=== PATIENT | female | born 1975 | race Caucasian/White ===

== ENCOUNTER → 2016-04-26 | Outpatient (CLI) | payer BC ==
--- NOTE | 2016-04-26 16:04 | DX ---
Chest, Two Views April 26, 2016 at 1156 hours History: C50.414, R91.1, postop right VATS. Comparison: March 2016. Findings: Cardiac silhouette is within normal range. Surgical clips in the right hemithorax. Pleur oparenchymal opacity in the right lower lobe appears unchanged. The left lung is clear. No pneumoth orax. Impressions 1. Postsurgical changes, with residual small right pleural effusion and right lower lobe opacity dem onstrating no significant interval change given the differences in technique. 2. No pneumothorax.
== END ==
LOC: FIMAGING 11:43
PROVIDERS: ATTEND Surgery
DX: J90 Pleural effusion, not elsewhere classified (principal); C50.419 Malignant neoplasm of upper-outer quadrant of unspecified female breast

== ENCOUNTER → 2016-06-28 | Outpatient (CLI) | payer BC ==
[~2016-06-28] MED LIST: IOPAMIDOL (ISOVUE-300) 100 ML BTL IV ONE
== END ==
LOC: FIMAGING 12:40
PROVIDERS: ATTEND Internal Medicine Hematology & Oncology
DX: Z12.9 Encounter for screening for malignant neoplasm, site unspecified (principal); C79.51 Secondary malignant neoplasm of bone; K76.0 Fatty (change of) liver, not elsewhere classified; R93.5 Abnormal findings on diagnostic imaging of other abdominal regions, including retroperitoneum; Z85.3 Personal history of malignant neoplasm of breast; Z98.890 Other specified postprocedural states
CPT/HCPCS: Q9967

== ENCOUNTER 2016-07-03 09:15 | Day surgery (SDC) | payer BC ==
[2016-07-03] MEDS ORDERED: PROPOFOL/EMULSION 500 MG/50 ML BOTTLE IV ONE ×2 (10:33→11:06)
[2016-07-03] MEDS ORDERED: LIDOCAINE 2% 100 MG/5 ML SYR ONE (10:33)
--- NOTE | 2016-07-03 12:44 | GPN ---
[f rep st] PROCEDURE NOTE DATE OF PROCEDURE: 07/03/2016 PROCEDURE: Esophagogastroduodenoscopy with biopsy, endoscopic ultrasound. INDICATION: Ms. Linn is a 40-year-old female with history of metastatic breast cancer, who presents for evaluation of abnormal imaging. On a recent CT scan she was noted to have thickening in the antrum and body of the stomach. CONSENT: Risks, benefits, and alternatives of the procedure discussed in detail with the patient. Risk of infection, bleeding, perforation, sedation were discussed. All questions answered. Informed consent was obtained. MEDICATIONS: Propofol. Please see anesthesiology for details. ESTIMATED BLOOD LOSS: Insignificant. ESOPHAGOGASTRODUODENOSCOPY EXAMINATION: The Olympus upper endoscope was introduced into the esophagus. The proximal and mid esophagus were normal in appearance. The patient was noted to have an irregular Z line and biopsies were taken. The stomach was entered and closely examined, including retroflexed views of angularis, cardia, and fundus. A moderate hiatal hernia was noted. The mucosa in the antrum and body was erythematous and multiple biopsies were taken throughout the stomach. The duodenal bulb and second portion of duodenum normal in appearance. ENDOSCOPIC ULTRASOUND: The Olympus linear as well as radial echoendoscope was inserted into the mouth and advanced to second portion of the duodenum. The pancreas was carefully examined from the uncinate process to the tail, where the spleen was seen. Multiple dilated side branches were noted in the body of the pancreas. Hyperechoic foci were noted throughout the pancreas. The pancreatic duct wall was not hyperechoic. No mass lesion was seen. No suspicious periportal, peripancreatic, or perigastric nodes were appreciated. The stomach wall layers were examined and were mildly thickened in the superficial wall layers which may represent gastritis. A normal 5 layer wall pattern was noted. No obvious mass lesion or area to FNA was visualized. The common bile duct was without stone, stricture or stenosis. IMPRESSION: 1. Abnormal imaging- with thickening of the antrum and body of the stomach. No obvious mass lesion seen on EUS. Suspect changes secondary to gastritis versus underdistention of the stomach during imaging. Will await biopsy results. 2. Gastritis- s/p biopsy. 3. Esophagitis- s/p biopsy. RECOMMENDATIONS: 1. Await biopsy results. 2. Continue previous medications. 3. Follow up with Oncology. /[id number]/MODL MTDD
== END 2016-07-03 12:30 | disposition home or self-care (01) ==
LOC: FSGY 09:15
PROVIDERS: ATTEND Internal Medicine Gastroenterology
DX: K29.70 Gastritis, unspecified, without bleeding (principal); Z85.3 Personal history of malignant neoplasm of breast
CPT/HCPCS: J2001; J2704

== ENCOUNTER → 2016-10-05 | Outpatient (CLI) | payer BC ==
[~2016-10-05] MED LIST changes: -IOPAMIDOL (ISOVUE-300) 100 ML BTL IV ONE; +IOPAMIDOL (ISOVUE-300) 100 ML BTL ONE
== END ==
LOC: FIMAGING 09:37
PROVIDERS: ATTEND Internal Medicine Hematology & Oncology
DX: Z12.9 Encounter for screening for malignant neoplasm, site unspecified (principal); J98.4 Other disorders of lung; C50.411 Malignant neoplasm of upper-outer quadrant of right female breast; C50.811 Malignant neoplasm of overlapping sites of right female breast; C50.919 Malignant neoplasm of unspecified site of unspecified female breast
CPT/HCPCS: 71260; 74177; 78306; A9503; Q9967

== ENCOUNTER 2016-10-23 14:36 | Inpatient (IN) | payer OTHER, BC ==
[2016-10-23] MEDS ORDERED: ONDANSETRON 4 MG/2 ML VIAL IVP PRN (17:31)
[2016-10-23] MEDS ORDERED: ONDANSETRON DISINTEGRATING 4 MG TAB PO PRN (17:31)
[2016-10-23] MEDS ORDERED: ACETAMINOPHEN 325 MG TAB PO PRN (17:31)
[2016-10-23] MEDS ORDERED: METOCLOPRAMIDE 10 MG/2 ML VIAL IVP PRN (17:37)
[2016-10-23] MEDS ORDERED: PROMETHAZINE HCL 25 MG/ML INJ IVP PRN (17:37)
[2016-10-23] MEDS ORDERED: TEMAZEPAM 15 MG CAP PO PRN (17:37)
[2016-10-23] MEDS ORDERED: NS 1,000 ML IV SCH (17:45)
--- NOTE | 2016-10-23 18:14 | GHP ---
[f rep st] HISTORY AND PHYSICAL DATE OF ADMISSION: 10/23/2016 HISTORY OF PRESENT ILLNESS: The patient is a 40-year-old female with a history of metastatic breast cancer currently stable on Xeloda therapy, who presents to the hospital with several weeks' worth o f abdominal pain, bloating, and vomiting. These episodes have been going on for at least 6-8 weeks, where she will have abdominal pain that is sharp. She will have some bloating and some vomiting. There is no melena. There is no hematemesi s. There is no coffee-grounds emesis. She had upper endoscopy performed in June of this year by Manohar Bradshaw that showed gastritis. There was an EUS done at that time concerned with thickening in the antrum of the body of the stomach, which was not seen on EUS. She had a biopsy of gastritis an d esophagitis. The patient had previously taken NSAIDs but is no longer taking them. Notably, she had staging imaging done in September of this year, at the end of September, so really about 3 we eks ago, and it showed 1 small lesion in her liver that is stable and small lesions in her pleura th at are stable. Abdominal CT done on October 05, notes a contracted gallbladder and they do not comment on stones. Her father had a cholecystectomy but also has obesity. There is no strong family histo ry. She no longer has menses. She is not drinking significant alcohol. She is not taking NSAIDs. She does not smoke cigarettes. She has does not have a family history of fibroid disease. She had a low-grade temperature at an ER visit in [place] on Sunday. She has been eating poorly. It is pos sible that there is a relationship between these abdominal symptoms and her postprandial nature. REVIEW OF SYSTEMS: A complete 10-point review of systems conducted and negative except as noted in the HPI. PAST MEDICAL HISTORY: 1. 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 2. Status post right-sided pleurodesis with Dr. Rucker. 3. She has had bilateral mastectomies with subsequent implants. She has had multiple hip surgeries including incision and drainage of a hip infection, bilateral oophorectomy, lumbar fusion. ALLERGIES: Hydromorphone. HOME MEDICATIONS: Xeloda, vitamin D3, b.i.d. Ativan, p.r.n. Percocet, Protonix, sucralfate, temazep am. 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 No tobacco, rare alcohol. FAMILY HISTORY: Negative for breast cancer. PHYSICAL EXAMINATION: VITAL SIGNS: Temp 36.9, blood pressure 124/82, pulse 60, breathing 16 times a minute, 94% on room air. GENERAL: In no acute distress. HEENT: Sclerae anicteric. Oropharynx clear. Mucous membranes moist. NECK: Supple without lymphadenopathy or JVD. LUNGS: Clear to aus cultation bilaterally. There are decreased breath sounds on the right, which is apparently consiste nt with her previous exams since her right pleurodesis. HEART: S1, S2. Not tachycardic. ABDOMEN: Soft. There is some right upper quadrant tenderness but I would not exactly call it a Durham sign . LOWER EXTREMITIES: Without edema. Calves nontender. SKIN: Without rash. NEUROLOGIC: Exam is nonfocal. LABORATORY AND X-RAY DATA: She had labs 10 days ago. She had a white count of 4.8, hematocrit of 4 1, and platelets of 293. Repeat chemistry shows a sodium 137, potassium 5, chloride 107, bicarb 19, BUN 11, creatinine 0.7. LFTs at that time were normal. The imaging as I have discussed. She also had a chest x-ray at that time that I have reviewed and interpreted myself showing chronic pleural thickening, pleurodesis. I have discussed the case with Dr. Brii Mckenzie. ASSESSMENT/PLAN: This is a 40-year-old female with metastatic breast cancer, who presents with naus ea and vomiting. 1. Nausea and vomiting. Certainly her story is possibly suggestive of chronic cholecystitis. Rece nt liver tests were somewhat normal and she tells me she had normal LFTs including alkaline phosphat ase and bilirubin in an ER visit in [place] just a few days ago. Irrespective, will check LFTs and a right upper quadrant ultrasound. We will also check a lipase at that time. She has been seen by Manohar Bradshaw, and if this is all unrevealing, then endoscopy with EUS probably would be indicated. There is no clear correlation with her cancer given her recent negative imaging. 2. She stopped her Xeloda 4 weeks ago, and so presumably, the potential for gastrointestinal upset, which does exist with that medicine would have washed out by now. We can discuss this at [facility] with the oncologist. 3. Breast cancer, stable per imaging. Currently off Xeloda. 4. History of pleurodesis. She is on room air and her exam is consistent with how it has been so w e will follow. 5. Prophylaxis. The patient is [id number] risk. I would recommend pharmacologic venous thro mbosis prophylaxis but I will hold it today until her plan for procedures is more clear. 6. Disposition. Inpatient status. /[id number]/MODL
[2016-10-23] MEDS ORDERED: FLUTICASONE NASAL 120 SPRAYS/16 GM MDI EACHNARE PRN (18:41)
[2016-10-23] MEDS ORDERED: SUCRALFATE 1 GM/10 ML UDCUP PO PRN (18:56)
[2016-10-23] MEDS ORDERED: PROMETHAZINE HCL 25 MG TAB PO PRN (18:56)
[2016-10-23] MEDS: OXYCODONE/APAP 5/325 TAB PO PRN ×2 (19:08→23:11)
[2016-10-23 21:59] LABS: % IMMATURE GRANULYOCYTES 0.2 % (0.0-1.1); ABSOLUTE IMMATURE GRANULOCYTES 0.01 10^3/uL (0.00-0.10); ADD DIFF? NO; ADD MORPH? NO; ADD SCAN? NO; ATYPICAL LYMPHOCYTE FLAG 0 (0-99); FRAGMENT RBC FLAG 0 (0-99); HEMATOCRIT 36.2 % (38.0-47.0); HEMOGLOBIN 12.8 g/dL (12.6-16.3); LEFT SHIFT FLG 0 (0-99); LIPEMIA HEMOLYSIS FLAG 90 (0-99); MEAN CELL HEMOGLOBIN 32.7 pg (27.9-34.1); MEAN CELL HEMOGLOBIN CONCENTR. 35.4 g/dL (32.4-36.7); MEAN CELL VOLUME 92.3 fL (81.5-99.8); MEAN PLATELET VOLUME 8.7 fL (8.7-11.7); PLATELET CLUMPS FLAG 0 (0-99); PLATELET COUNT 249 10^3/uL (150-400); RED BLOOD CELL COUNT 3.92 10^6/uL (4.18-5.33)
[2016-10-23 22:12] LABS: ALANINE AMINOTRANSFERASE 22 IU/L (9-52); ALBUMIN 4.2 g/dL (3.5-5.0); ALKALINE PHOSPHATASE 35 IU/L (38-126); ANION GAP 13 mEq/L (8-16); ASPARTATE AMINOTRANSFERASE 18 IU/L (14-46); BILIRUBIN,TOTAL 0.5 mg/dL (0.1-1.4); CALCIUM 9.6 mg/dL (8.5-10.4); CARBON DIOXIDE 20 mEq/l (22-31); CHLORIDE 105 mEq/L (97-110); CREATININE 0.6 mg/dL (0.6-1.0); GLOMERULAR FILTRATION RATE > 60; GLUCOSE 99 mg/dL (70-100); POTASSIUM 4.1 mEq/L (3.5-5.2); SODIUM 138 mEq/L (134-144)
[2016-10-23] MEDS: LORazepam 1 MG TAB PO PRN (22:23)
[2016-10-23] MEDS: TEMAZEPAM 15 MG CAP PO PRN (22:23)
[2016-10-24] MEDS ORDERED: POLYETHYLENE GLYCOL 3350 17 GM PKT PO PRN (02:52)
[2016-10-24 05:01] LABS: % IMMATURE GRANULYOCYTES 0.2 % (0.0-1.1); ABSOLUTE IMMATURE GRANULOCYTES 0.01 10^3/uL (0.00-0.10); ADD DIFF? NO; ADD MORPH? NO; ADD SCAN? NO; ATYPICAL LYMPHOCYTE FLAG 10 (0-99); FRAGMENT RBC FLAG 0 (0-99); HEMATOCRIT 35.7 % (38.0-47.0); HEMOGLOBIN 12.5 g/dL (12.6-16.3); LEFT SHIFT FLG 0 (0-99); LIPEMIA HEMOLYSIS FLAG 90 (0-99); MEAN CELL HEMOGLOBIN 32.6 pg (27.9-34.1); MEAN CELL VOLUME 93.2 fL (81.5-99.8); MEAN PLATELET VOLUME 8.7 fL (8.7-11.7); PLATELET CLUMPS FLAG 0 (0-99); PLATELET COUNT 240 10^3/uL (150-400); RED BLOOD CELL COUNT 3.83 10^6/uL (4.18-5.33)
[2016-10-24 05:13] LABS: ALANINE AMINOTRANSFERASE 25 IU/L (9-52); ALBUMIN 3.7 g/dL (3.5-5.0); ALKALINE PHOSPHATASE 37 IU/L (38-126); ANION GAP 10 mEq/L (8-16); ASPARTATE AMINOTRANSFERASE 16 IU/L (14-46); BILIRUBIN,TOTAL 0.5 mg/dL (0.1-1.4); CALCIUM 9.4 mg/dL (8.5-10.4); CARBON DIOXIDE 20 mEq/l (22-31); CHLORIDE 111 mEq/L (97-110); CREATININE 0.6 mg/dL (0.6-1.0); GLOMERULAR FILTRATION RATE > 60; GLUCOSE 86 mg/dL (70-100); POTASSIUM 4.1 mEq/L (3.5-5.2); SODIUM 141 mEq/L (134-144); TOTAL PROTEIN 6.5 g/dL (6.3-8.2)
[2016-10-24] MEDS ORDERED: Herbals/Supplements -Info Only PO SCH (09:00)
[2016-10-24] MEDS: CETIRIZINE 10 MG TAB PO SCH (13:34)
[2016-10-24] MEDS: PANTOPRAZOLE SODIUM 40 MG TAB PO SCH (13:34)
[2016-10-24] MEDS ORDERED: MIDAZOLAM 2 MG/2 ML VIAL ONE (16:07)
[2016-10-24] MEDS ORDERED: PROPOFOL 200 MG/20 ML VIAL ONE ×3 (16:07→16:31)
[2016-10-24] MEDS ORDERED: INDOMETHACIN 50 MG SUPP PR PRN (16:22)
--- NOTE | 2016-10-24 16:23 | POSTOPPROG ---
Post Op Note Date of Operation: 10/24/16 Surgeon: Hai Bradshaw Anesthesia: IV Sedation Pre-op Diagnosis: abdominal pain, abnormla imaging Post-op Diagnosis: HH, gastrititis Indication: abdominal pain, abnl imaging (CT scan showed thickening in distal stomach) Procedure: EGD with bx, EUS Findings: HH, gastriris. nl CBD. Inf/Abcess present in the surg proc area at time of surgery?: No EBL: Minimal
[2016-10-24] MEDS ORDERED: NS 500 ML IV SCH (16:30)
[2016-10-24] MEDS ORDERED: ONDANSETRON 4 MG/2 ML VIAL ONE (16:42)
[2016-10-24] MEDS ORDERED: NALOXONE HCL 0.4 MG/ML INJ IVP PRN (16:44)
[2016-10-24] MEDS ORDERED: LR 500 ML IV PRN (16:44)
--- NOTE | 2016-10-24 17:02 | HOSPPROG ---
Hospitalist Progress Note Assessment/Plan: DIAGNOSES: -Acute on chronic abdominal pain -history of metastatic breast cancer on chronic the Xeloda therapy -Status post pleurodesis for right pleural effusion I reviewed in detail with Dr Bradshaw today. She does not have any definitive findings so far that explain her pain. Considerations include functional bowel syndrome, bacterial overgrowth. A HIDA scan would be potentially useful but US not showing signs of gal bladder disease. PLANS: trial of rifaximin trial of antispasmodic HIDA SUBJECTIVE: The patient still has some pain this morning which is typical for her. She was not blood this morning. She was not particularly hungry but not nauseous. No fevers or fever symptoms. OBJECTIVE Vitals reviewed: Stable without fever Exam: alert oriented skin warm dry color ok resps not labored lungs clear BSs heart regular abd soft nondistended with some mild right upper quadrant tenderness present, no guarding or rebound, bowel sounds present limbs warm, no edema iv site ok laboratory data: Unremarkable CBC and chemistry panels; Her lipase was normal last night Ultrasound of abdomen, my review of the images: There is a small bit of ascites fluid adjacent to the liver which has been seen on previous imaging studies. The liver is otherwise unremarkable. She does not have visible gallstones and the gallbladder wall is not thickened at this time. The patient underwent today EGD with endoscopic ultrasound and advancement of a colonoscope into the jejunum. I reviewed this with Dr. Bradshaw. There were essentially no abnormal findings of concern. The gastritis and esophagitis seen on her previous EGD are not present at this time. Her bile duct was not dilated nor were there any stones or strictures seen anywhere. No masses were noted. There was no mucosal abnormality in the small bowel as it was endoscoped. Objective: Vital Signs Temp Pulse Resp BP Pulse Ox 36.8 C 59 L 16 99/72 L 98 10/24/16 16:38 10/24/16 15:21 10/24/16 16:50 10/24/16 16:50 10/24/16 16:50 Laboratory Results 10/24/16 04:45 10/24/16 04:45 10/23/16 10/24/16 10/25/16 06:59 06:59 06:59 Intake Total 1800 Balance 1800 ICD10 Worksheet Patient Problems: Problems Problem Status Onset Abdominal pain Acute Vomiting Acute
[2016-10-24] MEDS ORDERED: fentaNYL 100 MCG/2 ML INJ ONE (17:05)
[2016-10-24] MEDS: fentaNYL 100 MCG/2 ML INJ IVP PRN ×2 (17:06→17:39)
[2016-10-24] MEDS ORDERED: PROMETHAZINE HCL 25 MG/ML INJ ONE (17:33)
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
[2016-10-24] MEDS: RIFAXIMIN 550 MG TAB PO SCH (22:23)
[2016-10-24] MEDS: TEMAZEPAM 15 MG CAP PO PRN (22:25)
[2016-10-24] MEDS: OXYCODONE/APAP 5/325 TAB PO PRN (22:25)
[2016-10-25] MEDS: LORazepam 1 MG TAB PO PRN (01:49)
--- NOTE | 2016-10-25 08:10 | SOAPPROG ---
SOTRIP Progress Note Assessment/Plan: Assessment: Plan: 10/25/16 08:07 A/P 1. Abdominal pain- RUQ and epigastric. + bloating. Extensive workup with recent imaging studies including CT, US, EUS, and EGD. Etiology? Biliary versus functional versus small bowel overgrowth versus other? Symptoms atypical for gallbladder. HIDA scan is pending today. Started on trial of Xifaxan and would recommend to also start hyoscyamine prn for pain. Subjective: cc: Follow up abdominal pain. Minimal complaints of RUQ abdominal pain. No bloating. Objective: Vital Signs Temp Pulse Resp BP Pulse Ox 36.6 C 56 L 16 87/56 L 96 10/25/16 04:00 10/25/16 04:00 10/25/16 04:00 10/25/16 04:00 10/25/16 04:00 Laboratory Results 10/24/16 04:45 10/24/16 04:45 10/24/16 10/25/16 10/26/16 05:59 05:59 05:59 Intake Total 1800 3291 Output Total 0 Balance 1800 3291 Physical Exam - Physical Exam General Appearance: alert, no apparent distress EENT: No scleral icterus (R), No scleral icterus (L) Respiratory: chest non-tender, lungs clear, No crackles, No rales, No rhonchi Cardiac/Chest: regular rate, rhythm, No bradycardia, No tachycardia, No diastolic murmur, No systolic murmur Abdomen: soft, No non-tender (miminal RUQ), No distended, No guarding, No rebound Skin: normal color Neuro/Psych: alert, normal mood/affect, oriented x 3, No abnormal barrel finisher II-XII ICD10 Worksheet Patient Problems: Problems Problem Status Onset Abdominal pain Acute Vomiting Acute
[2016-10-25] MEDS ORDERED: HYOSCYAMINE SULFATE 0.125 MG TAB PO PRN (08:12)
[2016-10-25 08:22] VITALS: TEMP 98.1; O2SAT 94
--- NOTE | 2016-10-25 09:15 | GPN ---
[f rep st] PROCEDURE NOTE DATE OF PROCEDURE: 10/24/2016 PROCEDURE: Enteroscopy with biopsy, endoscopic ultrasound. INDICATION: The patient is a 40-year-old female who presents for evaluation of midepigastric and right upper quadrant abdominal pain. She also had a CT scan which did reveal thickening in the gastric antrum. She presents for further evaluation. CONSENT: Risks, benefits, and alternatives of the procedure were discussed in great detail with the patient. Risks of infection, bleeding, perforation, and sedation were discussed. All questions answered and informed consent was obtained. MEDICATIONS: Propofol. Please see anesthesia record for details. ESTIMATED BLOOD LOSS: Insignificant. ENTEROSCOPY: The Olympus colonoscope was introduced in the mouth and advanced to the proximal jejunum. The scope was advanced approximately 60 cm past the pylorus. The proximal, mid, and distal esophagus was normal in appearance. The stomach was entered and closely examined including retroflexed views of the angularis, cardia, and fundus. The mucosa was mildly erythematous in a patchy distribution in the antrum and the body. Biopsies were taken. The duodenum and proximal jejunum were normal in appearance. Biopsies were taken to rule out celiac sprue. ENDOSCOPIC ULTRASOUND EXAMINATION: The Olympus linear echoendoscope was introduced into the mouth and advanced to the second portion of the duodenum. The pancreas was carefully examined from the uncinate process to the tail, where the spleen was seen. The pancreatic parenchymal wall was slightly hypoechoic. Multiple dilated side branches were noted. The pancreatic duct wall did have hyperechoic moreira. Hyperechoic foci were noted throughout the pancreas. No masses or cystic lesions were seen. No lobulations were seen. The common bile duct was seen and measured approximately 3 mm. No stone, stricture, or stenosis was noted. The gallbladder was seen and was normal without gallbladder wall thickening or cholelithiasis. No suspicious periportal, , peripancreatic, or perigastric nodes appreciated. IMPRESSION: 1. No obvious cause of her symptoms seen. 2. Gastritis, status post biopsy. 3. Biopsy to rule out celiac sprue. RECOMMENDATIONS: 1. Follow up on biopsy results. 2. Will start a trial of Xifaxan 550 mg. 3. Would recommend a low-bloat diet. No salads or raw vegetables. Would also avoid dairy products. 4. Consider trial of antispasmodic. /[id number]/MODL MTDD
[2016-10-25 11:32] VITALS: BP 115/81; PULSE 71; RESP 18
[2016-10-25] MEDS: PANTOPRAZOLE SODIUM 40 MG TAB PO SCH (14:33)
[2016-10-25] MEDS: RIFAXIMIN 550 MG TAB PO SCH (14:33)
[2016-10-25] MEDS: CETIRIZINE 10 MG TAB PO SCH (14:33)
== END 2016-10-25 14:35 | disposition home or self-care (01) | DRG 392 ==
LOC: F1N 16:45
PROVIDERS: ADMIT Internal Medicine; ATTEND Internal Medicine
PROC: 0DB88ZX Excision of Small Intestine, Via Natural or Artificial Opening Endoscopic, Diagnostic (ICD-10-PCS; principal; 2016-10-24 16:00)
PROC: 0DB68ZX Excision of Stomach, Via Natural or Artificial Opening Endoscopic, Diagnostic (ICD-10-PCS; principal; 2016-10-24 16:00)
DX: K29.50 Unspecified chronic gastritis without bleeding (principal); Z85.3 Personal history of malignant neoplasm of breast; C78.7 Secondary malignant neoplasm of liver and intrahepatic bile duct
CPT/HCPCS: A9537; J2250; J2405; J2550; J2704; J3010

== ENCOUNTER 2016-11-10 10:05 | Inpatient (IN) | payer OTHER, BC ==
[2016-11-10] MEDS ORDERED: NS 1,000 ML IV ONE (11:14)
[2016-11-10] MEDS ORDERED: HEPARIN 1000 UNIT/1 ML MDV ONE (11:20)
[2016-11-10] MEDS ORDERED: ceFAZolin 1 GM/5 ML SYR ONE (11:20)
[2016-11-10] MEDS ORDERED: BUPIVACAINE 0.5% 30 ML SDV ONE (11:20)
[2016-11-10] MEDS ORDERED: SCOPOLAMINE HYDROBROMIDE 1.5 MG PATCH TD ONE (11:26)
[2016-11-10] MEDS ORDERED: MIDAZOLAM 2 MG/2 ML VIAL IVP ONE (11:27)
--- NOTE | 2016-11-10 11:28 | PDANEPAE ---
ANE History of Present Illness abdominal pain ANE Past Medical History - Cardiovascular History Hx Hypertension: No Hx Arrhythmias: No Hx Chest Pain: No Hx Coronary Artery / Peripheral Vascular Disease: No Hx CHF / Valvular Disease: No Hx Palpitations: No - Pulmonary History Hx COPD: No Hx Asthma/Reactive Airway Disease: No Hx Recent Upper Respiratory Infection: No Hx Oxygen in Use at Home: No Hx Sleep Apnea: No Sleep Apnea Screening Result - Last Documented: Negative Pulmonary History Comment: PLEURAL EFFUSION - RIGHT BREAST CA - Neurologic History Hx Cerebrovascular Accident: No Hx Seizures: No Hx Dementia: No - Endocrine History Hx Diabetes: No - Renal History Hx Renal Disorders: No - Liver History Hx Hepatic Disorders: No - Neurological & Psychiatric Hx Hx Neurological and Psychiatric Disorders: No - Cancer History Hx Cancer: Yes Cancer History Comment: RIGHT Breast CA - Congenital Disorder History Hx Congenital Disorders: No - GI History Hx Gastrointestinal Disorders: Yes Gastrointestinal History Comment: GASTRITIS - Other Health History Other Health History: NEG - Chronic Pain History Chronic Pain: Yes (HIP PAIN) - Surgical History Prior Surgeries: Bilateral total mastectomy, Bilateral hip REPAIR, multiple spinal instrumentations, ANE Patient History - Allergies Allergies/Adverse Reactions: No Allergies [NKDA] Allergy (Verified 10/24/16 07:07) - Home Medications Home Medications: Temazepam [Restoril] 30 mg PO HS PRN 04/05/15 [Last Taken 11/09/16 23:00] LORazepam [Ativan (*)] 1 mg PO BID PRN 03/01/16 [Last Taken 11/09/16 22:00] Fluticasone Nasal [Flonase Nasal [place]] 1 sprays NASAL DAILY PRN 10/23/16 [Last Taken 11/10/16 08:00] Loratadine [Claritin 10 mg] 10 mg PO DAILY 10/23/16 [Last Taken 11/10/16] Ondansetron Odt [Zofran Odt 4 mg (*)] 4 mg PO Q4H PRN 10/23/16 [Last Taken 11/08] Promethazine HCl [Phenergan 25mg (*)] 25 mg PO DAILY PRN 10/23/16 [Last Taken ] oxyCODONE/APAP 5/325 [Percocet 5/325 (*)] 2 tab PO Q4H PRN 10/23/16 [Last Taken 11/09/16 22:00] - NPO status NPO Since - Liquids (Date): 11/10/16 NPO Since - Liquids (Time): 07:30 NPO Since - Solids (Date): 11/09/16 NPO Since - Solids (Time): 23:00 - Smoking Hx Smoking Status: Never smoked - Family Anes Hx Family Hx Anesthesia Complications: neg ANE Labs/Vital Signs - Vital Signs Blood Pressure: 118/85 Heart Rate: 64 Respiratory Rate: 15 O2 Sat (%): 97 Height: 170.18 cm Weight: 63.503 kg ANE Physical Exam - Airway Neck exam: FROM Mallampati Score: Class 1 Mouth exam: normal dental/mouth exam - Pulmonary Pulmonary: no respiratory distress - Cardiovascular Cardiovascular: regular rate and rhythym - ASA Status ASA Status: II ANE Anesthesia Plan Anesthesia Plan: general endotracheal anesthesia
[2016-11-10] MEDS ORDERED: PROPOFOL 200 MG/20 ML VIAL ONE (11:32)
[2016-11-10] MEDS ORDERED: HYDROmorphONE/DILAUDID 2 MG/ML INJ ONE (11:32)
[2016-11-10] MEDS ORDERED: fentaNYL 100 MCG/2 ML INJ ONE ×2 (11:32)
--- NOTE | 2016-11-10 11:33 | PDHPUP ---
History & Physical Update H&P update statement: This history and physical update is based on an assessment of the patient which was completed after admission or registration (within 24 hours), but prior to the surgery/procedure. H&P update: H&P reviewed & patient examined, no change in patient's condition since H&P completed
[2016-11-10] MEDS ORDERED: ceFAZolin 2 GM in NS 100 ML IV ONE (11:34)
--- NOTE | 2016-11-10 11:40 | PDGENHP ---
History & Physical Chief Complaint: ABDOMINAL PAIN RECURRENT THE RIGHT UPPER QUADRANT History of Present Illness: 40-YEAR-OLD FEMALE WITH METASTATIC BREAST CANCER HAS BEEN ON TREATMENT FOR SEVERAL YEARS. SHE IS HAVING RECURRENT BOUTS OF SIGNIFICANT RIGHT UPPER QUADRANT PAIN. RECENT CT SCAN SHOWS SOME SUSPICIOUS AREAS FOR POSSIBLE ABDOMINAL METASTATIC DISEASE. SHE IS ADMITTED AT THIS TIME FOR LAPAROSCOPY FOR BIOPSY FOR FURTHER EVALUATION Pertinent Past, Social, Family History: BREAST CANCER WITH BILATERAL MASTECTOMIES AND RECONSTRUCTION. RIGHT CHEST PLEURODESIS AFTER MULTIPLE THORACENTESIS. LAPAROSCOPIC BILATERAL OOPHORECTOMIES Relevant Physical Exam: GENERAL: HEALTHY-APPEARING 40-YEAR-OLD FEMALE WHO IS IN NO ACUTE DISTRESS, AFEBRILE. HEENT: NONICTERIC WITHOUT ADENOPATHY AND NO ORAL LESIONS, NECK IS SUPPLE. CHEST CLEAR AND SYMMETRIC. COR: REGULAR RHYTHM AND WITHOUT MURMUR. ABDOMEN: SOFT NOT PARTICULARLY TENDER WITH BOWEL SOUNDS, SLIGHTLY DISTENDED WITH FULLNESS IN THE LEFT UPPER QUADRANT. EXTREMITIES REVEAL FULL RANGE OF MOTION FULL PULSES. SKIN EXAM REVEALS NO MAJOR LESIONS. PSYCH EXAM REVEALS HER TO BE ORIENTED AND APPROPRIATE Cardiorespiratory Assessment: IMPRESSION: POSSIBLE PERITONEAL METASTATIC DISEASE. PLAN: DIAGNOSTIC LAPAROSCOPY AND BIOPSY
[2016-11-10] MEDS ORDERED: ceFAZolin 2 GM/DEXTROSE 100 ML IV ONE (12:00)
[2016-11-10] MEDS ORDERED: ONDANSETRON 4 MG/2 ML VIAL ONE (12:38)
[2016-11-10] MEDS ORDERED: SURGIFLO MATRIX KIT WITH THROMBIN TP ONE (12:40)
[2016-11-10] MEDS ORDERED: NALOXONE HCL 0.4 MG/ML INJ IVP PRN ×2 (13:01→16:18)
[2016-11-10] MEDS ORDERED: fentaNYL 100 MCG/2 ML INJ IVP PRN (13:01)
[2016-11-10] MEDS ORDERED: HYDROmorphONE/DILAUDID 1 MG/ML SYR IVP PRN ×2 (13:01→14:01)
--- NOTE | 2016-11-10 13:19 | POSTOPPROG ---
Post Op Note Date of Operation: 11/10/16 Surgeon: Shivam Rucker X Ray Control Equipment Repairer: Emilee Pacheco Anesthesiologist: Dana Anesthesia: GET(General Endotracheal) Pre-op Diagnosis: Metastatic breast cancer Post-op Diagnosis: same Indication: Abdominal pain Procedure: exploratory laparoscopy, partial omentectomy, right lobe liver bx, paracent Findings: multiple leasions, ascities Inf/Abcess present in the surg proc area at time of surgery?: No Depth: Organ Space EBL: Minimal Specimen(s): omental biopsy right lower lobe liver biopsy
--- NOTE | 2016-11-10 13:25 | POSTANESTH ---
Post Anesthetic Evaluation Cardiovascular Status: Normal, Stable Respiratory Status: Normal, Stable Level of Consciousness/Mental Status: Can Participate in Eval Pain Control: Adequate, Prn Tx Ordered Nausea/Vomiting Control: Adequate, Prn Tx Ordered Complications Possibly Related to Anesthesia: None Noted
[2016-11-10] MEDS ORDERED: PROMETHAZINE HCL 25 MG/ML INJ ONE (13:42)
[2016-11-10] MEDS: PROMETHAZINE HCL 25 MG/ML INJ IVP PRN ×3 (13:45→14:49)
[2016-11-10] MEDS ORDERED: MEPERIDINE 25 MG/ML SYR ONE (13:58)
[2016-11-10] MEDS ORDERED: MEPERIDINE 25 MG/ML SYR IVP PRN (14:05)
[2016-11-10] MEDS ORDERED: KETOROLAC 15 MG/1 ML SDV ONE (14:25)
[2016-11-10] MEDS: KETOROLAC 15 MG/1 ML SDV IVP SCH ×3 (14:26→23:45)
[2016-11-10] MEDS ORDERED: POLYETHYLENE GLYCOL 3350 17 GM PKT PO PRN (16:16)
[2016-11-10] MEDS: morphINE PCA 30 MG/30 ML PCA IV PRN (16:25)
[2016-11-10] MEDS: D5W 1/2 NS W/ 20 KCl/L 1,000 ML IV SCH ×2 (16:27→23:47)
[2016-11-10] MEDS: ONDANSETRON 4 MG/2 ML VIAL IVP PRN ×2 (16:36→23:54)
[2016-11-10] MEDS ORDERED: NON-FORMULARY NEW DRUG (Temazepam [Restoril] 30 MG) PO PRN (18:18)
[2016-11-10] MEDS ORDERED: FLUTICASONE NASAL 120 SPRAYS/16 GM MDI EACHNARE PRN (18:18)
--- NOTE | 2016-11-10 20:06 | PDGENHP ---
History and Physical History and Physical: HISTORY AND PHYSICAL CC: abdominal pain HISTORY: The patient has been having recurrent bouts of abrupt and severe abdominal cramping pain with bloating and vomiting, leading to numerous ER visits at her home in [place]. Episodes typically last several hours. These have been going on for at least 8 months and getting more frequent. She has been evaluated for these over time with upper endoscopy which in the past showed some gastritis while taking NSAIDS, with resolution on repeat study. She has also had CT scans and ultrasounds. There was concern about these being due to xeloda which she has taken for years for breast cancer, or to ongoing gastritis. Due to ongoing symptoms she was admitted here 10/23-10/25 for further evaluation, though was not having any of her acute episodic symptoms at the time. Tests included blood work, abdominal US, HIDA, EGD with endoscopic US and evaluation of the first few feet of small bowel with longer scope - no specific etiology was identified. She went home with a trial of diet restricitons and trial of xyfaxan for ? of bacterial overgrowth, but her symptoms continued. Yesterday I reviewed her previous CT scans with Dr Hale and the most recent in September showed a small area of inflammation in the LUQ as well as a small amount of free fluid in the pelvis. After discussion with Dr Mckenzie it was elected to bring her here for surgical exploration. Notably none of her CT scans showed sign of obstruction but none were done during her painful episodes. In addition the the above, there is a steadily increasing RUQ pain that is fairly constant but nearly so severe as the episodic pains. She does have a history of breast cancer which was known metastatic with pleural effusion and both ovaries upon removal had disease in them. 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 I have reviewed the list and ordered appropriate medicines. PHYSICAL EXAMINATION: Vital Signs: (post op) stable without fever Examination (post op): General: alert, oriented, good mentation Skin: warm, dry, good color, no rash HEENT: normal Resps: relaxed Lungs: clear breath sounds Heart: regular, no murmur Abdomen: soft, nondistended, nontender Upper Extremities: normal Lower Extremities: no edema, warm No Bleeding or bruising IV site: looks normal RADIOLOGY: As above I reviewed, yesterday with Dr Hale, her [address] abdomen studies, showing some free pelvic fluid and a persistant small area of inflammation in LUQ on the last one in late September. The patient is now back from her exploratory laparotomy, which identified what looks like peritoneal carcinomatosis, with biopsies obtained. ASSESSMENT: I believe she has been having intermittent bowel obstructions caused by tumors, but she has never been seen during and episode where proper imaging was available for diagnosing this. She will need further bowel imaging to see if there is an identifiable focus of obstruction. This will hopefully be helpful in identifying an approach to treat for resolution of her pain episodes, though it may come down to trying other chemotherapy. Beyond that, it will be desirable to try to control her disease from further progression. The xeloda is clearly not at this time sufficient for managing her tumor any more. Recommendations for further chemo will depend on tumor studies which are ordered. In addition, Dr Mckenzie mentions there was a somewhat recent MRI brain with a questionable skull lesion (frontal area). It will be useful to reimage this in terms of treatment planning PLANS: Small bowel follow thru study MRI of brain/skull tumor studies on biopsy material I have reviewed the patient's case in detail with Dr. Mckenzie I have reviewed the patient's past medical records as part of this assessment, including past hospital and outpatient imaging studies.
--- NOTE | 2016-11-10 20:15 | SOAPPROG ---
SOAP Progress Note Assessment/Plan: Assessment: OK POSTOP/ WOUNDS OK/ AFEBRILE/ TOLERATING PO Plan:SBFT IN AM 11/10/16 20:14 Objective: Vital Signs Temp Pulse Resp BP Pulse Ox 36.7 C 72 18 86/73 L 94 11/10/16 19:32 11/10/16 19:32 11/10/16 19:32 11/10/16 19:32 11/10/16 19:32 11/09/16 11/10/16 11/11/16 05:59 05:59 05:59 Intake Total 1200 Output Total 50 Balance 1150 ICD10 Worksheet Patient Problems: Problems Problem Status Onset Abdominal pain Acute Vomiting Acute
[2016-11-10] MEDS: TEMAZEPAM 15 MG CAP PO PRN (21:57)
[2016-11-10] MEDS: DIAZEPAM 5 MG TAB PO PRN (21:57)
[2016-11-11] MEDS ORDERED: LORazepam 2 MG/ML INJ IVP PRN (01:07)
[2016-11-11] MEDS ORDERED: fentaNYL 100 MCG/2 ML INJ IVP ONE ×2 (02:21→02:30)
[2016-11-11] MEDS: HYOSCYAMINE SULFATE 0.125 MG TAB PO PRN (02:35)
[2016-11-11] MEDS: DIAZEPAM 5 MG TAB PO PRN ×2 (03:43→19:01)
[2016-11-11] MEDS: KETOROLAC 15 MG/1 ML SDV IVP SCH ×4 (05:31→23:34)
[2016-11-11] MEDS: D5W 1/2 NS W/ 20 KCl/L 1,000 ML IV SCH (05:32)
[2016-11-11] MEDS ORDERED: NON-FORMULARY NEW DRUG (Loratadine [Claritin 10 Mg] 10 MG) PO SCH (09:00)
[2016-11-11] MEDS: ONDANSETRON 4 MG/2 ML VIAL IVP PRN ×3 (09:15→23:47)
[2016-11-11] MEDS: CETIRIZINE 10 MG TAB PO SCH (10:57)
[2016-11-11] MEDS: fentaNYL 100 MCG/2 ML INJ IVP PRN ×4 (11:31→23:40)
[2016-11-11] MEDS: ACETAMINOPHEN 325 MG TAB PO PRN (11:34)
--- NOTE | 2016-11-11 12:28 | SOAPPROG ---
SOAP Progress Note Assessment/Plan: Assessment: 40yo F POD#1 s/p dx lap with partial omentectomy and peritoneal bx. findings consistent with carcinomatosis. h/o metastatic breast ca. SBFT pending pain control a big issue overnight and today. symptoms sound obstructive d/t mets- await results of sbft. will discuss findings with Dr. Rucker to see if there are any surgical options for her. Appreciate hospitalists and onc S: had a horrible night with uncontrolled pain. O: laying in bed, tearful, very uncomfortable and obviously uncontrolled abdominal pain. no increased wob absent BS. softly distended, tender RUQ. Incisions CDI Objective: Vital Signs Temp Pulse Resp BP Pulse Ox 37.3 C 101 H 16 115/66 91 L 11/11/16 11:50 11/11/16 11:50 11/11/16 11:50 11/11/16 11:50 11/11/16 11:50 11/10/16 11/11/16 11/12/16 05:59 05:59 05:59 Intake Total 7178 Output Total 50 Balance 2748 ICD10 Worksheet Patient Problems: Problems Problem Status Onset Abdominal pain Acute Vomiting Acute
[2016-11-11] MEDS ORDERED: MORPHINE IV SCH (14:15)
[2016-11-11] MEDS ORDERED: D5W IV SCH (14:15)
--- NOTE | 2016-11-11 19:11 | HOSPPROG ---
Hospitalist Progress Note Assessment/Plan: DIAGNOSES: -New finding of peritoneal carcinomatosis likely spread of her breast cancer -Acute recurrence of episodic diffuse abdominal colic pain, severe, uncertain mechanism but probably caused by her carcinomatosis -Her last MRI showed questionable lesion of skull I have reviewed her situation with Dr Perla and with Dr Fishman. Her symptom is that of episodic severe colic, and with no biliary, hepatic, vascular or other findings on prior w/u, is likely due to her carcinomatosis but without obstruction or bowel distension. The pain could be inflammatory but there is nothing to suggest that so most likely spasm. She has tried hyosciamine with little help. At this time will start a trial of octreotide to see if that helps , and with review with GI to see what suggestions they have. May be of benefit in long run to do trial of antidepressant but this will not likely do much to treat her severe epsiodes when they occur. Could consider trial of steroid. PLANS: - continue current pain management which is with ULTRASOUND TECHNOL narcotic and a continuous infusion of morphine -Trial of octreotide for her colic episodes, dose started tonight -She may need some relative store if she does not move her bowels with the laxative she is currently receiving, last stool 2 days ago -MRI of brain and skull tomorrow to reassess previous questionable skull lesion -Awaiting tumor studies which will take some time to come back but Dr. Alaniz will present her case again to tumor Board to consider possible future therapies -Home once pain adequately controlled SUBJECTIVE: overnight had onset of one of her typical severe colicky episodes mainly RUQ and epigastric pain w nausea, requiring significant narcotic analgesic for control. her symptoms settle a bit by morning but were severely increased with drinking of contrast for SBFT, and persisted thru day into evening. No fever symptoms or other new symptoms. OBJECTIVE Vitals reviewed: stable without fever Exam: alert oriented skin warm dry color ok resps not labored lungs clear BSs heart regular abd soft mildly distended, quite tender w some guarding RUQ but no rebound; bowel sounds present limbs warm, no edema iv site ok I reviewed images of her SBFT with Dr Perla radiology: no obstuction or other significant abnormality Objective: Vital Signs Temp Pulse Resp BP Pulse Ox 36.4 C 93 16 151/82 H 94 11/11/16 15:47 11/11/16 18:41 11/11/16 18:41 08/05/17 18:41 11/11/16 18:41 11/10/16 11/11/16 11/12/16 06:59 06:59 06:59 Intake Total 2568 400 Output Total 50 Balance 9628 400 ICD10 Worksheet Patient Problems: Problems Problem Status Onset Abdominal pain Acute Vomiting Acute
[2016-11-11] MEDS ORDERED: BISACODYL 10 MG SUPP PR PRN (19:59)
[2016-11-11] MEDS: OCTREOTIDE ACETATE 50 MCG/ML INJ SC SCH (20:16)
[2016-11-11] MEDS: TEMAZEPAM 15 MG CAP PO PRN (22:22)
[2016-11-12] MEDS: DIAZEPAM 5 MG TAB PO PRN ×2 (00:43→08:23)
[2016-11-12] MEDS: morphINE PCA 30 MG/30 ML PCA IV PRN ×2 (01:27→13:28)
[2016-11-12] MEDS: KETOROLAC 15 MG/1 ML SDV IVP SCH ×2 (06:03→15:29)
[2016-11-12] MEDS: D5W 1/2 NS W/ 20 KCl/L 1,000 ML IV SCH (06:04)
[2016-11-12] MEDS: ONDANSETRON 4 MG/2 ML VIAL IVP PRN ×3 (06:35→15:26)
[2016-11-12] MEDS: ACETAMINOPHEN 325 MG TAB PO PRN ×3 (06:36→21:02)
[2016-11-12] MEDS: fentaNYL 100 MCG/2 ML INJ IVP PRN ×2 (06:43→09:43)
--- NOTE | 2016-11-12 08:36 | HOSPPROG ---
Hospitalist Progress Note Assessment/Plan: 1. Breast cancer, metastatic with newly diagnosed peritoneal carcinomatosis -will try fentanyl patch to get a baseline of pain control and avoid the GI SE of other meds -discussed with pharmacist, will decrease baseline infusion of MSO4 overt, hope to stop completely tomorrow and see if can take oral prns, as would like to discharge home (lives in [place]) -discussed heme/onc care in general, primary is Dr Mckenzie, will ask Dr Calvin to see her tomorrow if she is not well enough to go home tomorrow -has a therapist she speaks with regularly, declines medications at this time for mood -MRI of brain today, last MRI showed possible lesions of skull -consider palliative consult if symptoms not improving with changes today -discussed care plan with Dr Rucker, he is OK with starting lovenox, stop toradol 2. Acute recurrence of episodic diffuse abdominal colic pain, severe - see above -restart PPI, stop octreotide -discussed TPN vs tube feeds, nutritional needs in general -no sign obstruction on abd xray, consider GI eval if symptoms persisting 3. Diarrhea -check c diff 4. Anemia -check in AM to ensure stability 5. Hyopnatremia/transaminitis -check in AM DVT prophy- start lovenox PCP- none Dispo- likely > 2 mdnts still due to severity of symptoms Subjective: Having a lot of nausea and abd pain still. Thinks octreotide made things worse. Also having diarrhea. Denies SOB/CP. Has had a HARRIS, ? caffeine withdrawal. and a family friend in room also. Objective: Vital Signs Temp Pulse Resp BP Pulse Ox 98.8 F 95 16 92/48 L 95 11/12/16 08:00 11/12/16 08:00 11/12/16 08:00 11/12/16 08:00 11/12/16 08:00 11/10/16 11/11/16 11/12/16 11:59 11:59 11:59 Intake Total 2798 1900 Output Total 50 Balance 2748 1900 - Time Spent With Patient Time Spent with Patient: greater than 35 minutes Time Spent with Patient: Greater than 35 minutes spent on this patients care, greater than 50% of time spent counseling, educating, and coordinating care regarding the above mentioned plan. - Physical Exam Constitutional: uncomfortable Eyes: PERRL, anicteric sclera, EOMI Ears, Nose, Mouth, Throat: moist mucous membranes, hearing normal Cardiovascular: regular rate and rhythym, no murmur, rub, or gallop Respiratory: no respiratory distress, no rales or rhonchi, clear to auscultation Gastrointestinal: normoactive bowel sounds, tenderness (mild- throughout), other (incision sites CDI), No guarding, No rebound Skin: warm, normal color Musculoskeletal: other (SHINE, R arm in lymphedema cushion) Psychiatric: interacting appropriately, not anxious, not encephalopathic, thought process linear ICD10 Worksheet Patient Problems: Problems Problem Status Onset Abdominal pain Acute Vomiting Acute
[2016-11-12] MEDS: CETIRIZINE 10 MG TAB PO SCH (09:49)
[2016-11-12 10:23] LABS: % IMMATURE GRANULYOCYTES 0.2 % (0.0-1.1); ABSOLUTE IMMATURE GRANULOCYTES 0.02 10^3/uL (0.00-0.10); ADD DIFF? NO; ADD MORPH? NO; ADD SCAN? NO; ATYPICAL LYMPHOCYTE FLAG 10 (0-99); FRAGMENT RBC FLAG 0 (0-99); HEMATOCRIT 34.7 % (38.0-47.0); HEMOGLOBIN 11.6 g/dL (12.6-16.3); LEFT SHIFT FLG 0 (0-99); LIPEMIA HEMOLYSIS FLAG 80 (0-99); MEAN CELL HEMOGLOBIN 32.2 pg (27.9-34.1); MEAN CELL HEMOGLOBIN CONCENTR. 33.4 g/dL (32.4-36.7); MEAN CELL VOLUME 96.4 fL (81.5-99.8); MEAN PLATELET VOLUME 8.9 fL (8.7-11.7); PLATELET CLUMPS FLAG 0 (0-99); PLATELET COUNT 164 10^3/uL (150-400); RED CELL DISTRIBUTION WIDTH 11.8 % (11.5-15.2)
[2016-11-12 10:44] LABS: ALANINE AMINOTRANSFERASE 92 IU/L (9-52); ALKALINE PHOSPHATASE 59 IU/L (38-126); ANION GAP 6 mEq/L (8-16); ASPARTATE AMINOTRANSFERASE 72 IU/L (14-46); CALCIUM 8.4 mg/dL (8.5-10.4); CARBON DIOXIDE 22 mEq/l (22-31); CHLORIDE 103 mEq/L (97-110); CREATININE 0.8 mg/dL (0.6-1.0); GLOMERULAR FILTRATION RATE > 60; GLUCOSE 96 mg/dL (70-100); POTASSIUM 4.3 mEq/L (3.5-5.2); SODIUM 131 mEq/L (134-144); TOTAL PROTEIN 5.7 g/dL (6.3-8.2)
[2016-11-12] MEDS: PROMETHAZINE HCL 25 MG/ML INJ IV PRN ×3 (11:56→21:55)
[2016-11-12] MEDS ORDERED: GADOBUTROL 10 ML VIAL IVP ONE (16:21)
[2016-11-12] MEDS ORDERED: IBUPROFEN 600 MG TAB PO PRN (16:31)
[2016-11-12] MEDS: fentaNYL 25 MCG PATCH TD SCH (17:09)
[2016-11-12] MEDS: PANTOPRAZOLE SODIUM 40 MG in NS 100 ML IV SCH (17:22)
[2016-11-12] MEDS: OCTREOTIDE ACETATE 50 MCG/ML INJ SC SCH (17:23)
[2016-11-12] MEDS: ENOXAPARIN 40 MG/0.4 ML SYR SC SCH (18:02)
[2016-11-12] MEDS: LORazepam 1 MG TAB PO PRN (21:52)
[2016-11-12] MEDS: TEMAZEPAM 15 MG CAP PO PRN (21:52)
[2016-11-13] MEDS: LORazepam 1 MG TAB PO PRN ×2 (04:08→22:48)
[2016-11-13] MEDS: fentaNYL 100 MCG/2 ML INJ IVP PRN (04:51)
[2016-11-13] MEDS: ACETAMINOPHEN 325 MG TAB PO PRN ×2 (06:01→15:20)
[2016-11-13] MEDS: DIAZEPAM 5 MG TAB PO PRN ×2 (06:01→21:26)
[2016-11-13 06:13] LABS: ALANINE AMINOTRANSFERASE 68 IU/L (9-52); ALBUMIN 2.8 g/dL (3.5-5.0); ALKALINE PHOSPHATASE 80 IU/L (38-126); ANION GAP 8 mEq/L (8-16); ASPARTATE AMINOTRANSFERASE 48 IU/L (14-46); CALCIUM 8.2 mg/dL (8.5-10.4); CARBON DIOXIDE 18 mEq/l (22-31); CHLORIDE 104 mEq/L (97-110); CREATININE 0.6 mg/dL (0.6-1.0); GLOMERULAR FILTRATION RATE > 60; GLUCOSE 90 mg/dL (70-100); POTASSIUM 4.7 mEq/L (3.5-5.2); SODIUM 130 mEq/L (134-144); TOTAL PROTEIN 5.4 g/dL (6.3-8.2)
[2016-11-13] MEDS ORDERED: DIPHENOXYLATE/ATROPINE LOMOTIL 1 TAB PO PRN (10:06)
[2016-11-13] MEDS: PANTOPRAZOLE SODIUM 40 MG in NS 100 ML IV SCH (10:13)
--- NOTE | 2016-11-13 10:16 | HOSPPROG ---
Hospitalist Progress Note Assessment/Plan: 1. Breast cancer, metastatic with newly diagnosed peritoneal carcinomatosis -pain control improved with fentanyl patch, stop KENO WRITER, po perc for breakthrough ordered -would like to discharge home (lives in [place]) depending upon chemo plan -primary is Dr Mckenzie, Dr Calvin to see her today to review options -has a therapist she speaks with regularly, declines medications at this time for mood -MRI with no lesions yesterday -discussed care plan with Dr Calvin 2. Acute recurrence of episodic diffuse abdominal colic pain, severe - see above -improving, declines PPI -discussed TPN vs tube feeds, nutritional needs in general. Does not want either at this time 3. Diarrhea -c diff neg -lomotil prn 4. Anemia -unable to get sample, she declines further try today 5. Hyopnatremia/transaminitis -stable Na, improving LFTs DVT prophy- lovenox PCP- none Dispo- likely > 2 mdnts still due to severity of symptoms and depending upon decision re chemo Subjective: Feels better, except had fecal incontinence last night. Says nausea better, pain better. Wants IV meds/IVF stopped. Doesn't want protonix. Saw Dr Mckenzie this AM, Dr Calvin planning to formally consult to discuss options. Says has done well prev with percocet, declines roxinol. Objective: Vital Signs Temp Pulse Resp BP Pulse Ox 97.4 F 88 16 95/51 L 94 11/13/16 08:06 11/13/16 08:06 11/13/16 08:06 11/13/16 08:06 11/13/16 08:06 Laboratory Results 11/13/16 05:45 11/13/16 05:45 11/11/16 11/12/16 11/13/16 11:59 11:59 11:59 Intake Total 2798 1900 1876 Output Total 50 10 256 Balance 2748 1890 1620 - Physical Exam Constitutional: chronically ill appearing Eyes: PERRL, anicteric sclera, EOMI Ears, Nose, Mouth, Throat: moist mucous membranes, hearing normal Cardiovascular: regular rate and rhythym, no murmur, rub, or gallop, No edema Respiratory: no respiratory distress, no rales or rhonchi, clear to auscultation Gastrointestinal: normoactive bowel sounds, tenderness, distension, other ( incisions CDI), No guarding, No rebound Skin: warm, other (has lymphedema sleeve on L arm) Psychiatric: interacting appropriately, not anxious, not encephalopathic, thought process linear ICD10 Worksheet Patient Problems: Problems Problem Status Onset Abdominal pain Acute Vomiting Acute
[2016-11-13] MEDS: OXYCODONE/APAP 5/325 TAB PO PRN ×3 (10:50→20:35)
[2016-11-13] MEDS: CETIRIZINE 10 MG TAB PO SCH (10:52)
--- NOTE | 2016-11-13 10:59 | SOAPPROG ---
SOAP Progress Note Assessment/Plan: Assessment: OK POSTOP/ WOUNDS OK/ AFEBRILE/ TOLERATING PO Plan:SBFT IN AM 11/10/16 20:14 11/13/16 10:57 FEELING MUCH BETTER TODAY/ AFEBRILE/ +FLATUS AND BMS/ WOUNDS OK/ ABD SOFT/ AWAIT PATH Objective: Vital Signs Temp Pulse Resp BP Pulse Ox 36.3 C 88 16 95/51 L 94 11/13/16 08:06 11/13/16 08:06 11/13/16 08:06 11/13/16 08:06 11/13/16 08:06 Laboratory Results 11/13/16 05:45 11/13/16 05:45 11/12/16 11/13/16 11/14/16 05:59 05:59 05:59 Intake Total 1900 1876 Output Total 266 Balance 1900 1610 ICD10 Worksheet Patient Problems: Problems Problem Status Onset Abdominal pain Acute Vomiting Acute
[2016-11-13] MEDS: ENOXAPARIN 40 MG/0.4 ML SYR SC SCH (11:11)
--- NOTE | 2016-11-13 11:58 | GCON ---
[f rep st] CONSULTATION ONCOLOGY INITIAL VISIT. PRIMARY ONCOLOGIST: Brii Mckenzie MD. REASON FOR VISIT: Evaluation and management for metastatic breast cancer. HISTORY OF PRESENT ILLNESS: The patient is a 40-year-old woman who was initially diagnosed 2011 h a stage IIA (pT1c N1a), ER positive, HER2 negative breast cancer. She underwent bilateral mastect omies. There were 2/26 lymph nodes positive. She received 6 cycles of adjuvant docetaxel and cyclo phosphamide through September 2011 and then was on adjuvant tamoxifen starting November 2011. She underwen t a bilateral oophorectomy even 2014. She did not undergo postmastectomy radiation therapy. She di d well up until January 2014, when an incidental right pleural effusion was found when she was in ER for a different issue. PET scan showed uptake in the pleura, as well as an isolated liver lesi on. Biopsy of the liver lesion confirmed metastatic breast cancer. On liver biopsy, her HER2 test was equivocal and ER and ND were weakly positive. She was started on capecitabine, and actually has been on the drug now for about 30 months. Over the last 6 to 8 months, she has been having more abdominal trouble with intermittent abdominal cramping and vomiting. She has had CT scans and ultrasounds, which showed some nonspecific changes in the abdomen, but not changing very rapidly. She had upper endoscopy that showed a little gastrit is. Because of the ongoing symptoms, she was admitted to the hospital for exploratory laparoscopy, which revealed most likely peritoneal carcinomatosis. Final pathology on that is still pending toda y. Lately, she has been having some watery stools, still has a little bit of distention and crampin g, but she has been able to eat a little bit more lately. ALLERGIES: She has reported having allergies to Vicodin and Dilaudid. In the hospital, I also had listed gabapentin as an allergy. HOME MEDICATIONS: Capecitabine. She is on 1000 mg twice daily, temazepam, promethazine, Percocet a s needed for pain, ondansetron, loratadine, lorazepam, hyoscyamine, fluticasone nasal. PAST MEDICAL HISTORY: Chronic illnesses include the breast cancer as described in HPI. She has a p revious iron deficiency anemia due to heavy menses, bilateral labral repair of her hips and a staph infection of the hip and joint in the past. SURGICAL HISTORY: Includes bilateral hip surgeries for labral repair, surgery L5-S1, bilateral mast ectomies, bilateral oophorectomies in February 2015, right pleurodesis March 2016 and revision ri ght implant March 2016. FAMILY HISTORY: Breast cancer paternal aunt. Prostate cancer in paternal uncle. No family history of ovarian cancer. SOCIAL HISTORY: She is a nurse and works at the hospital. She is a nonsmoker and only drinks alcoh ol occasionally. She has never been . REVIEW OF SYSTEMS: A 10-point review of systems performed. Pertinent positives in HPI, otherwise n egative. PHYSICAL EXAMINATION: VITAL SIGNS: Today, temperature is 36.3, pulse is 88, blood pressure is 95/5 1. GENERAL: She is a well-appearing woman. She is in no distress. She has multiple friends and f amily members with her. LUNGS: Clear. CARDIAC: Regular. ABDOMEN: Soft, mildly distended and te nder in the right upper quadrant. Bowel sounds are hyperactive. NEURO: Grossly intact. LABORATORY DATA: A CBC yesterday is unremarkable. Sodium today is 130, but her other chemistries a re unremarkable. AST and ALT are slightly elevated. Path is still pending. C difficile is negativ e. Brain MRI was unremarkable. Small bowel follow-through showed some delayed transit. Abdominal x-ray yesterday was unremarkable. IMPRESSION: 1. Metastatic breast cancer with newly diagnosed probable peritoneal carcinomatosis. 2. Abdominal pain and vomiting. 3. Recent diarrhea. 4. Mild hyponatremia. Most likely, this is her breast cancer which is slowly progressing on the current capecitabine regim en. I spoke with Dr. Mckenzie this morning and she is sort of thinking to different directions. If t he patient cannot take significant nutrition by mouth, she would like to start her on intravenous ch emotherapy. She initially was taking Doxil, although the patient has a study performed in the past that shows that anthracyclines may not be as effective. I could also consider something like gemcit abine, which tends to be well tolerated. She would need to go that route and she will probably even tually need to have a Port-A-Cath. The other route is to take advantage of hormone expression and use either Faslodex or an aromatase i nhibitor plus palbociclib. These should respond well. Most patients tolerate it well, although the palbociclib can cause loose stools and low blood counts. I recommend that we get the final results on her pathology to make sure that she is still expressing estrogen receptors and see how she is do ing with oral intake. We will follow along with her while in the hospital. /[id number]/MODL
--- NOTE | 2016-11-13 14:05 | HOSPPROG ---
Hospitalist Progress Note Assessment/Plan: 1. Breast cancer, metastatic with newly diagnosed peritoneal carcinomatosis -pain control improved with fentanyl patch, po oxy for breakthrough -would like to discharge home (lives in [place]) depending upon chemo plan -primary is Dr Mckenzie, Dr Calvin seeing her here also -has a therapist she speaks with regularly, declines medications at this time for mood -MRI brain with no lesions -discussed care plan with Dr Calvin 2. Acute recurrence of episodic diffuse abdominal colic pain, severe - see above -improving, declined PPI -gentle advance of diet as tolerated 3. Diarrhea -c diff neg -lomotil prn 4. Anemia -unable to draw last sample 5. Hyopnatremia/transaminitis -stable Na, improving LFTs -check with next lab draw DVT prophy- lovenox PCP- none Dispo- possible dc in AM if doing well, to FU with heme/onc as outpt vs initiate chemo while in hospital Subjective: More comfortable, able to eat. Wants to go home when able, discussing options with heme/onc. Objective: Vital Signs Temp Pulse Resp BP Pulse Ox 98.2 F 88 16 95/51 L 94 11/13/16 13:13 11/13/16 08:06 11/13/16 08:06 11/13/16 08:06 11/13/16 08:06 Laboratory Results 11/13/16 05:45 11/13/16 05:45 11/12/16 11/13/16 11/14/16 11:59 11:59 11:59 Intake Total 1900 1876 Output Total 10 256 Balance 1890 1620 - Time Spent With Patient Time Spent with Patient: greater than 35 minutes Time Spent with Patient: Greater than 35 minutes spent on this patients care, greater than 50% of time spent counseling, educating, and coordinating care regarding the above mentioned plan. - Pending Discharge Pending Discharge Within 48 Hours: Yes Pending Discharge Date: 11/16/16 Pending Discharge Time: 11:00 - Physical Exam Constitutional: no apparent distress, appears nourished Eyes: PERRL, anicteric sclera Ears, Nose, Mouth, Throat: moist mucous membranes, hearing normal Cardiovascular: regular rate and rhythym Respiratory: no respiratory distress, no rales or rhonchi, clear to auscultation Gastrointestinal: normoactive bowel sounds, tenderness (tender throughout- mild/ mod, wound sites CDI), No guarding, No rebound, No distension Skin: warm, other (lymphedema sleeve on R arm) Psychiatric: interacting appropriately, not anxious, not encephalopathic, thought process linear ICD10 Worksheet Patient Problems: Problems Problem Status Onset Metastatic breast cancer Chronic
[2016-11-13] MEDS: ONDANSETRON 4 MG/2 ML VIAL IVP PRN (15:20)
--- NOTE | 2016-11-13 16:30 | ECHO ---
[id number] + + [address] : : [place] [address] : : [phone] + + Adult Echocardiographic Report + ----+ :Name: SOLANGE LOZOYA MStudy Date: 11/13/2016 02:45 PM : : Hospital Admission Number: [id number] Location: 148: :: 1975 Gender: Female Height: 67 in : :Age: 40 yrs Race: WH Weight: 140 lb : :Reason For Study: Eval LV Fx : : BSA: 1.7 meters2 : :History: Pre Chemo : + ----+ MMode/2D Measurements \T\ Calculations IVSd: 0.79 cm LVIDd: 4.5 cm FS: 40.3 % Ao root diam: 3.1 cm LVPWd: 0.83 cm LVIDs: 2.7 cm EDV(Teich): 92.0 ml ACS: 2.2 cm ESV(Teich): 26.5 ml EF(Teich): 71.2 % Normal Measurement Values: + + :LVIDd (3.5-5.7cm) IVSd (0.6-1.1cm) LVPWd (0.6-1.1cm) Aortic Root (2.0-3.7cm)Left Atrium (1.5-4.0cm): :LV Vol(d) (76-115ml) LV Vol(s) (29-48ml) Ejec Fraction (50-65%)PV Med (0.6- 1.2m/s) TV Med (0.4-1.0m/s) : :MV E Med (0.8-1.0m/s)MV A Med (0.3-1.0m/s)LVOT Med (0.7-1.2m/s) Asc Ao Med ( 0.9-1.8m/s) : + + Doppler Measurements \T\ Calculations MV E max med: Ao V2 max: LV V1 max: PA V2 max: 82.9 cm/sec 122.0 cm/sec 64.7 cm/sec 95.0 cm/sec MV A max med: Ao max P.0 mmHg LV V1 max PG: PA max P.8 cm/sec 1.7 mmHg 3.6 mmHg MV E/A: 1.5 Left Ventricle The left ventricle is normal in size and function. There is normal left ventricular wall thickness. The left ventricular ejection fraction is normal. Ejection Fraction = 72%. No regional wall motion abnormalities noted. Right Ventricle The right ventricle is normal in size and function. Atria The left atrial size is normal. Right atrial size is normal. Mitral Valve The mitral valve is normal in structure and function. There is no evidence of mitral valve prolapse. There is no mitral valve stenosis. There is no mitral regurgitation noted. Tricuspid Valve The tricuspid valve is normal in structure and function. No tricuspid regurgitation. Aortic Valve The aortic valve is normal in structure and function. The aortic valve is trileaflet. The aortic valve opens well. There is no aortic stenosis. There is no aortic insufficiency. Pulmonic Valve The pulmonic valve is normal in structure and function. There is no pulmonic valvular regurgitation. Great Vessels The aortic root is normal size. Pericardium/Pleural There is no pericardial effusion. Conclusion A complete two-dimensional transthoracic echocardiogram was performed (2D, M-mode, Doppler and color flow Doppler). The left ventricle is normal in size and function. The left ventricular ejection fraction is normal. Ejection Fraction = 72%. No regional wall motion abnormalities noted. The right ventricle is normal in size and function. The left atrial size is normal. Right atrial size is normal. The mitral valve is normal in structure and function. The tricuspid valve is normal in structure and function. The aortic valve is normal in structure and function. There is no pericardial effusion. Final Reading Physician: Antelmo Grimm signed on 11/13/2016 04:29 PM Ordering Physician: Nichole Calvin Performed By: Bahman Vazquez, RDCS
--- NOTE | 2016-11-13 16:34 | GOP ---
[f rep st] OPERATIVE REPORT DATE OF OPERATION: 11/10/2016 SURGEON: Shivam Rucker MD SWITCH COUPLER: Emilee Pacheco PA-C ANESTHESIOLOGIST: Dr. Cortez. PREOPERATIVE DIAGNOSIS: Metastatic breast cancer and abdominal pain. POSTOPERATIVE DIAGNOSIS: Carcinomatosis of the abdomen. PROCEDURE PERFORMED: Exploratory laparoscopy with partial omentectomy, excision of a right lobe brie er mass, and paracentesis. FINDINGS: Patient was found to have multiple small metastatic implants covering the small bowel, co andriy, omentum, and peritoneal surfaces. She had a 2 cm mass in the right lobe of the liver, and she had caking and thickening with metastatic involvement in the omentum which was quite shortened by e process and she had approximately 600 cc of ascites. ESTIMATED BLOOD LOSS: Less than 25 cc. DESCRIPTION OF PROCEDURE: Patient was brought to the operating room, where she received satisfactor y general endotracheal anesthesia by Dr. Cortez. She was placed in supine position, prepped and tanmay ped in the usual sterile fashion. A periumbilical incision was made. A Veress needle was inserted. Pneumoperitoneum was established. Trocar was introduced. Good visualization was obtained. Two o ther trocars were introduced under direct vision. The ascitic fluid was suctioned clear. The thick ened omentum in the left upper quadrant was then isolated. It was carefully dissected away from the colon and stomach with a large volume of tissue for pathology studies. These were extracted throug h the midline port. Attention was also turned to the liver nodule which was then excised. The live r parenchyma was cauterized circumferentially around the nodule and then the parenchyma was divided carefully with the Harmonic Scalpel until the entire lesion could be excised. This was placed in a specimen bag and extracted through the midline port site. It was felt that enough tissue for diagno sis was obtained and with these 2 separate biopsies there were no actual peritoneal biopsies done. The liver biopsy site was reinspected and hemostasis appeared to be good. It was covered with some Floseal hemostatic agent as well. Trocars were removed under direct vision. All wounds were infilt rated with 0.5% Marcaine. Trocar sites were closed with 0 Vicryl for the fascia and 4-0 Monocryl dang bcuticular stitch for the skin. Again all areas were infiltrated with 0.5% Marcaine. COMPLICATIONS: There were no complications. /[id number]/MODL
[2016-11-13] MEDS: PROMETHAZINE HCL 25 MG/ML INJ IV PRN (17:10)
[2016-11-13] MEDS: HYOSCYAMINE SULFATE 0.125 MG TAB PO PRN (21:24)
[2016-11-13] MEDS: TEMAZEPAM 15 MG CAP PO PRN (21:25)
[2016-11-14] MEDS: oxyCODONE IR 5 MG TAB PO PRN ×2 (00:42→05:53)
[2016-11-14] MEDS: DIAZEPAM 5 MG TAB PO PRN (07:52)
[2016-11-14] MEDS: CETIRIZINE 10 MG TAB PO SCH (10:55)
[2016-11-14] MEDS: ENOXAPARIN 40 MG/0.4 ML SYR SC SCH (10:56)
--- NOTE | 2016-11-14 11:17 | SOAPPROG ---
SOAP Progress Note Assessment/Plan: Assessment: OK POSTOP/ WOUNDS OK/ AFEBRILE/ TOLERATING PO Plan:SBFT IN AM 11/10/16 20:14 11/13/16 10:57 FEELING MUCH BETTER TODAY/ AFEBRILE/ +FLATUS AND BMS/ WOUNDS OK/ ABD SOFT/ AWAIT PATH 11/14/16 11:16 VERY UPSET ABOUT HER SITUATION, MORE COMFORTABLE/ +FLATUS, LOTS OF DIARHEA AND LARGE BM/ AFEBRILE PATH PENDING/ MAY NEED PORT Objective: Vital Signs Temp Pulse Resp BP Pulse Ox 36.8 C 83 18 93/57 L 91 L 11/14/16 08:44 11/14/16 08:44 11/14/16 08:44 11/14/16 08:44 11/14/16 08:44 Laboratory Results 11/13/16 05:45 11/13/16 05:45 11/13/16 11/14/16 11/15/16 05:59 05:59 05:59 Intake Total 1876 1700 Output Total 266 2 Balance 1610 1698 ICD10 Worksheet Patient Problems: Problems Problem Status Onset Abdominal pain Acute Vomiting Acute
--- NOTE | 2016-11-14 11:27 | SOAPPROG ---
SOAP Progress Note Assessment/Plan: E&M for breast cancer * Metastatic Breast cancer with newly diagnosed peritoneal carcinomatosis: path is consistent with breast cancer and is ER positive. Her2 is pending. Options are to get chemotherapy for potentially more rapid response and then switch to AI + Ibrance vs. just going to AI + Ibrance without chemo. Spoke with Dr. Mckenzie who will speak to her further. She will probably get outpatient PET to see if this disease can now been seen. * Episodic diffuse abdominal colic pain, severe: Discussed with Dr. Michelle regarding some options to help control symptoms. Treating the cancer will be the most effective. * Watery Diarrhea: suspect post op + recent barium * Disposition: able to go home carrie and we will set her up with new therapy outpatient. Subjective: Doing ok without new complaints. Still with discomfort on left side. Watery diarrhea better after Lomotil. Objective: Vital Signs Temp Pulse Resp BP Pulse Ox 36.8 C 83 18 93/57 L 91 L 11/14/16 08:44 11/14/16 08:44 11/14/16 08:44 11/14/16 08:44 11/14/16 08:44 Laboratory Results 11/13/16 05:45 11/13/16 05:45 11/13/16 11/14/16 11/15/16 05:59 05:59 05:59 Intake Total 1876 1700 Output Total 266 2 Balance 1610 1698 - Time Spent With Patient Time Spent With Patient: >35 min with patient and involved physicians. Physical Exam - Physical Exam General Appearance: no apparent distress Cardiac/Chest: regular rate, rhythm Abdomen: normal bowel sounds, soft, No non-tender ICD10 Worksheet Patient Problems: Problems Problem Status Onset Abdominal pain Acute Vomiting Acute
[2016-11-14] MEDS ORDERED: ceFAZolin 2 GM/DEXTROSE 100 ML IV ONE (14:59)
--- NOTE | 2016-11-14 18:02 | HOSPPROG ---
Hospitalist Progress Note Assessment/Plan: 1. Breast cancer, metastatic with newly diagnosed peritoneal carcinomatosis -pain control improved with fentanyl patch, po oxy for breakthrough, Rxs written so family can fill now, facilitating discharge -would like to discharge home (lives in [place]) -primary is Dr Mckenzie, Dr Calvin seeing her here also -has a therapist she speaks with regularly, declines medications at this time for mood -MRI brain with no lesions -discussed care plan with Dr Calvin 2. Acute recurrence of episodic diffuse abdominal colic pain, severe - see above -improved, declined PPI -gentle advance of diet as tolerated 3. Diarrhea -c diff neg -lomotil prn 4. Anemia -unable to draw last sample 5. Hyopnatremia/transaminitis -stable Na, improving LFTs -check with next lab draw DVT prophy- lovenox PCP- none Dispo- discharge today entered, but later in afternoon she changed her mind and wanted to stay for port placement. Discharge cancelled. Subjective: Feels OK, wants to go home but waiting to talk with Dr Mckenzie re plan for chemo. Considering port placement, but inclined to do later in the week as an outpt. Objective: Vital Signs Temp Pulse Resp BP Pulse Ox 98.2 F 83 18 93/57 L 91 L 11/14/16 08:44 11/14/16 08:44 11/14/16 08:44 11/14/16 08:44 11/14/16 08:44 Laboratory Results 11/13/16 05:45 11/13/16 05:45 11/13/16 11/14/16 11/15/16 11:59 11:59 11:59 Intake Total 1876 1700 Output Total 256 2 Balance 1620 1698 - Time Spent With Patient Time Spent with Patient: greater than 35 minutes Time Spent with Patient: Greater than 35 minutes spent on this patients care, greater than 50% of time spent counseling, educating, and coordinating care regarding the above mentioned plan. - Physical Exam Constitutional: no apparent distress, appears nourished Eyes: PERRL, anicteric sclera, EOMI Ears, Nose, Mouth, Throat: moist mucous membranes Cardiovascular: regular rate and rhythym, no murmur, rub, or gallop Respiratory: no respiratory distress, no rales or rhonchi, clear to auscultation Gastrointestinal: normoactive bowel sounds, tenderness (mild/mod- throughout, incisions CDI), No guarding, No rebound, No distension Skin: warm, other (lymphedema sleeve on R) Psychiatric: interacting appropriately, not anxious, not encephalopathic, thought process linear ICD10 Worksheet Patient Problems: Problems Problem Status Onset Metastatic breast cancer Chronic
[2016-11-14] MEDS ORDERED: MIDAZOLAM 2 MG/2 ML VIAL IVP ONE (18:11)
--- NOTE | 2016-11-14 18:11 | PDANEPAE ---
ANE History of Present Illness 40 YO F w primary BCA herefor chemoport placement ANE Past Medical History - Cardiovascular History Hx Hypertension: No Hx Arrhythmias: No Hx Chest Pain: No Hx Coronary Artery / Peripheral Vascular Disease: No Hx CHF / Valvular Disease: No Hx Palpitations: No - Pulmonary History Hx COPD: No Hx Asthma/Reactive Airway Disease: No Hx Recent Upper Respiratory Infection: No Hx Oxygen in Use at Home: No Hx Sleep Apnea: No Sleep Apnea Screening Result - Last Documented: Negative Pulmonary History Comment: PLEURAL EFFUSION - RIGHT BREAST CA - Neurologic History Hx Cerebrovascular Accident: No Hx Seizures: No Hx Dementia: No - Endocrine History Hx Diabetes: No - Renal History Hx Renal Disorders: No - Liver History Hx Hepatic Disorders: No - Neurological & Psychiatric Hx Hx Neurological and Psychiatric Disorders: No - Cancer History Hx Cancer: Yes Cancer History Comment: RIGHT Breast CA - Congenital Disorder History Hx Congenital Disorders: No - GI History Hx Gastrointestinal Disorders: Yes Gastrointestinal History Comment: GASTRITIS - Other Health History Other Health History: NEG - Chronic Pain History Chronic Pain: Yes (HIP PAIN) - Surgical History Prior Surgeries: Bilateral total mastectomy, Bilateral hip REPAIR, multiple spinal instrumentations, ANE Review of Systems - Exercise capacity Exercise capacity: >=4 METS ANE Patient History - Allergies Allergies/Adverse Reactions: gabapentin Allergy (Severe, Verified 11/13/16 10:04) NIGHT TERRORS - Home Medications Home Medications: Temazepam [Restoril] 30 mg PO HS PRN 04/05/15 [Last Taken 11/09/16 23:00] LORazepam [Ativan (*)] 1 mg PO BID PRN 03/01/16 [Last Taken 11/09/16 22:00] Fluticasone Nasal [Flonase Nasal [place]] 1 sprays EACHNARE DAILY PRN 10/23/16 [ Last Taken 11/10/16 08:00] Loratadine [Claritin 10 mg] 10 mg PO DAILY 10/23/16 [Last Taken 11/10/16] Ondansetron Odt [Zofran Odt 4 mg (*)] 4 mg PO Q4H PRN 10/23/16 [Last Taken 11/08] Promethazine HCl [Phenergan 25mg (*)] 25 mg PO DAILY PRN 10/23/16 [Last Taken ] oxyCODONE/APAP 5/325 [Percocet 5/325 (*)] 2 tab PO Q4H PRN 10/23/16 [Last Taken 11/09/16 22:00] Capecitabine [Xeloda (*)] 1,000 mg PO BID 11/10/16 [Last Taken 11/08/16] - NPO status NPO Status: no food or drink >8 hours NPO Since - Liquids (Date): 11/10/16 NPO Since - Liquids (Time): 07:30 NPO Since - Solids (Date): 11/09/16 NPO Since - Solids (Time): 23:00 - Anes Hx Anes Hx: post operative nausea and vomiting - Smoking Hx Smoking Status: Never smoked - Alcohol Use Alcohol Use: Sober - Family Anes Hx Family Anes Hx: none Family Hx Anesthesia Complications: neg ANE Labs/Vital Signs - Labs Result Diagrams: 11/13/16 05:45 11/13/16 05:45 - Vital Signs Blood Pressure: 93/57 Heart Rate: 83 Respiratory Rate: 18 O2 Sat (%): 91 Height: 170.18 cm Weight: 63.503 kg ANE Physical Exam - Airway Neck exam: FROM Mallampati Score: Class 2 Mouth exam: normal dental/mouth exam - Pulmonary Pulmonary: no respiratory distress, clear to auscultation - Cardiovascular Cardiovascular: regular rate and rhythym, no murmur, rub, or gallop - ASA Status ASA Status: III ANE Anesthesia Plan Anesthesia Plan: GA w LMA Lines/Monitors: additional IV
[2016-11-14] MEDS ORDERED: fentaNYL 100 MCG/2 ML INJ IVP ONE (18:24)
[2016-11-14] MEDS ORDERED: fentaNYL 100 MCG/2 ML INJ ONE ×4 (18:27→21:11)
[2016-11-14] MEDS ORDERED: BUPIVACAINE 0.5% 30 ML SDV ONE ×2 (19:13→19:34)
[2016-11-14] MEDS ORDERED: BACITRACIN ZINC 14.2 GM OINTTUBE TP ONE ×2 (19:13→19:34)
[2016-11-14] MEDS ORDERED: PROPOFOL 200 MG/20 ML VIAL ONE ×2 (19:18)
[2016-11-14] MEDS: fentaNYL 100 MCG/2 ML INJ IVP PRN ×4 (19:20→21:24)
[2016-11-14] MEDS ORDERED: LIDOCAINE 2% 100 MG/5 ML SYR ONE (19:20)
[2016-11-14] MEDS ORDERED: CEFAZOLIN 2 GM/DEXTROSE/100 ML BAG IV ONE (19:33)
[2016-11-14] MEDS ORDERED: LIDOCAINE 1% 300 MG/30 ML SDV ONE (19:34)
[2016-11-14] MEDS ORDERED: SODIUM BICARBONATE 10 MEQ/10 ML SYR IVP ONE (19:34)
[2016-11-14] MEDS ORDERED: ACETAMINOPHEN 500 MG TAB PO PRN (20:42)
[2016-11-14] MEDS ORDERED: MEPERIDINE 25 MG/ML SYR IVP PRN (20:42)
[2016-11-14] MEDS ORDERED: fentaNYL 100 MCG/2 ML INJ IVP PRN (20:42)
[2016-11-14] MEDS ORDERED: NALOXONE HCL 0.4 MG/ML INJ IVP PRN (20:42)
[2016-11-14] MEDS ORDERED: ONDANSETRON 4 MG/2 ML VIAL IVP PRN (20:42)
[2016-11-14] MEDS ORDERED: PROMETHAZINE HCL 25 MG/ML INJ IVP PRN (20:42)
--- NOTE | 2016-11-14 20:46 | POSTANESTH ---
Post Anesthetic Evaluation Cardiovascular Status: Normal, Stable, Similar to Pre-Op Cond Respiratory Status: Normal, Stable, Similar to Pre-op Cond. Level of Consciousness/Mental Status: Can Participate in Eval, Alert and Oriented Pain Control: Adequate, Prn Tx Ordered Nausea/Vomiting Control: Adequate, Prn Tx Ordered Complications Possibly Related to Anesthesia: None Noted
--- NOTE | 2016-11-14 20:46 | POSTOPPROG ---
Post Op Note Date of Operation: 11/14/16 Surgeon: Shivam Rucker Anesthesiologist: GIULIANO Anesthesia: GET(General Endotracheal) Pre-op Diagnosis: BREAST CANCER Post-op Diagnosis: SAME Indication: IV ACCESS FOR CHEMO Procedure: LEFT SUBCLAVIAN PORT WITH FLOURO Findings: GOOD POSITION AND FLOW Inf/Abcess present in the surg proc area at time of surgery?: No Depth: Deep Incisional (Fascial) EBL: Minimal Complications: 0
--- NOTE | 2016-11-14 20:47 | SOAPPROG ---
SOAP Progress Note Assessment/Plan: Assessment: OK POSTOP/ WOUNDS OK/ AFEBRILE/ TOLERATING PO Plan:SBFT IN AM 11/10/16 20:14 11/13/16 10:57 FEELING MUCH BETTER TODAY/ AFEBRILE/ +FLATUS AND BMS/ WOUNDS OK/ ABD SOFT/ AWAIT PATH 11/14/16 11:16 VERY UPSET ABOUT HER SITUATION, MORE COMFORTABLE/ +FLATUS, LOTS OF DIARHEA AND LARGE BM/ AFEBRILE PATH PENDING/ MAY NEED PORT 11/14/16 20:46 SURGICAL RISKS AND OPTIONS FULLY DISCUSSED AND SHE WISHES TO PROCEED WITH PORT Objective: Vital Signs Temp Pulse Resp BP Pulse Ox 37.5 C 88 16 108/78 90 L 11/14/16 18:34 11/14/16 18:34 11/14/16 18:34 11/14/16 18:34 11/14/16 18:34 Laboratory Results 11/13/16 05:45 11/13/16 05:45 11/13/16 11/14/16 11/15/16 05:59 05:59 05:59 Intake Total 1876 1700 1000 Output Total 266 2 Balance 1610 1698 1000 ICD10 Worksheet Patient Problems: Problems Problem Status Onset Metastatic breast cancer Chronic
[2016-11-14] MEDS ORDERED: ONDANSETRON 4 MG/2 ML VIAL ONE (20:56)
[2016-11-14] MEDS: OXYCODONE/APAP 5/325 TAB PO PRN (21:58)
[2016-11-14] MEDS: LORazepam 1 MG TAB PO PRN (23:30)
[2016-11-14] MEDS: TEMAZEPAM 15 MG CAP PO PRN (23:30)
[2016-11-15] MEDS: OXYCODONE/APAP 5/325 TAB PO PRN ×2 (02:24→08:56)
[2016-11-15 08:00] VITALS: RESP 18; O2SAT 95
[2016-11-15] MEDS: fentaNYL 25 MCG PATCH TD SCH (08:56)
[2016-11-15] MEDS: CETIRIZINE 10 MG TAB PO SCH (08:56)
--- NOTE | 2016-11-15 09:36 | PDDCSUM ---
Discharge Summary Discharge Summary: DISCHARGE DIAGNOSES: -Abdominal pain, with recurrent upper abdominal colic -Peritoneal carcinomatosis with metastatic spread of known breast cancer -Postoperative ileus CONSULTANTS: Dr. Michelle [facility] Medicine service Dr. Calvin and Jonah of oncology PROCEDURES: Exploratory laparoscopy with biopsies of peritoneal masses [facility] COURSE SUMMARY: This patient with known stage IV breast cancer which had been in remission on Xeloda has been having severe recurrent abdominal colic episodes with some mild ongoing pain. She had been previously here with some endoscopic in imaging studies which were unrevealing. She returns at this time for exploratory laparoscopy. This was done by Dr. Rucker and revealed diffuse peritoneal carcinomatosis with biopsies returning positive for estrogen receptors at 80%. She had a small-bowel follow-through study which did not show any evidence of obstruction. 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 She did have some postop ileus and symptoms were aggravated from the contrast from small bowel study. However at this time she is back to her baseline of feeling reasonably well and eating well. Is anticipated she will continue to have some ongoing colic episodes. The patient's case was presented at tumor Board and plans are made for her next treatments which will begin next week in clinic with Dr. Mckenzie. At this point the patient is stable for discharge to home. Her PICC catheter is in good condition. She is ambulating and eating well. She is with her boyfriend who will be driving her home. PENDING TEST RESULTS: Tumor marker studies MEDICATION CHANGES: Addition of fentanyl patch 25 mcg Addition of Oxy IR 5 mg tablets for p.r.n. use FOLLOW-UP PLAN: She will follow up with Dr. Brii Mckenzie in 1 week Greater than 35 minutes bedside and care coordination time today
--- NOTE | 2016-11-15 11:10 | SOAPPROG ---
SOAP Progress Note Assessment/Plan: E&M for breast cancer * Metastatic Breast cancer with newly diagnosed peritoneal carcinomatosis: path is consistent with breast cancer and is ER positive. Her2 is pending. She will get Doxil then switch to AI + Ibrance. Port is in and she will start therapy outpatient. Baseline echo is good. * Episodic diffuse abdominal colic pain, severe: Discussed with Dr. Michelle regarding some options to help control symptoms. Treating the cancer will be the most effective. * Disposition: able to go home today and we will set her up with new therapy outpatient. Subjective: Dr. Mckenzie met with the patient yesterday and recommended starting with Doxil to get the disease under control and then switch to AI + Ibrance. Patient agreed and stayed overnight to get Port. She is otherwise doing well this am. Objective: Vital Signs Temp Pulse Resp BP Pulse Ox 36.4 C 74 18 104/74 95 11/15/16 07:56 11/15/16 07:56 11/15/16 07:56 11/15/16 07:56 11/15/16 07:56 Laboratory Results 11/13/16 05:45 11/13/16 05:45 11/14/16 11/15/16 11/16/16 05:59 05:59 05:59 Intake Total 1700 2400 Output Total 2 1200 900 Balance 1698 1200 -900 Physical Exam - Physical Exam General Appearance: no apparent distress Skin: other (Port on left without infection) ICD10 Worksheet Patient Problems: Problems Problem Status Onset Metastatic breast cancer Chronic
[2016-11-15 11:30] VITALS: BP 140/93; PULSE 76; TEMP 97.4
[2016-11-16 14:49] LABS: ACCESSION # HR17-37565; INTERPRETATION See Comments; MATERIAL See Comments
[2016-11-16 14:49] LABS: ACCESSION # HR17-37569; INTERPRETATION See Comments
== END 2016-11-15 11:33 | disposition home or self-care (01) | DRG 357 ==
LOC: F3E 10:05 → F1N 13:35 → OBSVTOIN 11-11 12:52
PROVIDERS: ADMIT Surgery; ATTEND Internal Medicine
DX: C78.6 Secondary malignant neoplasm of retroperitoneum and peritoneum (principal); K56.7 Ileus, unspecified; C78.7 Secondary malignant neoplasm of liver and intrahepatic bile duct; C78.2 Secondary malignant neoplasm of pleura; E87.1 Hypo-osmolality and hyponatremia; F32.9 Major depressive disorder, single episode, unspecified; R19.7 Diarrhea, unspecified; D64.9 Anemia, unspecified; Z85.3 Personal history of malignant neoplasm of breast; Z90.13 Acquired absence of bilateral breasts and nipples
CPT/HCPCS: A9585; C1788; J0690; J1170; J1642; J1650; J1885; J2001; J2060; J2250; J2270; J2354; J2405; J2550; J2704; J3010

== ENCOUNTER → 2016-11-22 | Outpatient (CLI) | payer OTHER, BC ==
[~2016-11-22] MED LIST changes: +GADOBUTROL 10 ML VIAL IVP ONE; -IOPAMIDOL (ISOVUE-300) 100 ML BTL ONE
== END ==
LOC: FIMAGING 10:52
PROVIDERS: ATTEND Internal Medicine Hematology & Oncology
DX: C78.6 Secondary malignant neoplasm of retroperitoneum and peritoneum (principal); C79.51 Secondary malignant neoplasm of bone; R18.8 Other ascites; Z98.890 Other specified postprocedural states; Z85.3 Personal history of malignant neoplasm of breast
CPT/HCPCS: 72197; 74183; A9585

== ENCOUNTER → 2017-02-12 | Outpatient (CLI) | payer OTHER, BC | LOC: FIMAGING 12:30 | PROVIDERS: ATTEND Internal Medicine Hematology & Oncology | DX: C79.51 Secondary malignant neoplasm of bone (principal); C78.6 Secondary malignant neoplasm of retroperitoneum and peritoneum; M76.891 Other specified enthesopathies of right lower limb, excluding foot; Z85.3 Personal history of malignant neoplasm of breast; Z98.890 Other specified postprocedural states | CPT/HCPCS: 72197; 74183; A9585; J1642 ==

== ENCOUNTER 2017-03-15 17:44 | Emergency (ER) | payer OTHER, BC ==
[2017-03-15] MEDS ORDERED: NS 1,000 ML IV ONE ×2 (18:38→19:55)
--- NOTE | 2017-03-15 18:42 | EDPHY ---
H & P Time Seen by Provider: 03/15/17 18:18 HPI/ROS: CHIEF COMPLAINT: Fever and cough HISTORY OF PRESENT ILLNESS: 41-year-old woman has a history of metastatic breast cancer and received her 5th round of doxorubicin chemotherapy 48 hr ago on Sunday. Over the last 24 hr she developed heavy chest and a cough associated with fever. Nonproductive. Mild shortness of breath. Fever not associated with neck stiffness or earache or sore throat or urinary symptoms or vomiting or diarrhea. A little bit better with Tylenol, not worse with anything. Cough is moderate, no history of DVT or PE. REVIEW OF SYSTEMS: Eye: no change in vision ENT: no sore throat Cardiac: no chest pain or syncope Pulmonary: HPI Abdomen: no vomiting, diarrhea, abdominal pain Musculoskeletal: Diffuse myalgias and some back pain Skin: no rash, no redness around the site of her port. Neuro: Mild headache Constitutional: HPI : no urinary symptoms A comprehensive 10 point review of systems is otherwise negative aside from elements mentioned in the history of present illness. PAST MEDICAL HISTORY: Metastatic breast cancer. Bilateral hip surgery. Oophorectomy. VATS procedure on her right lung Social history: Lives in [place], oncologist is Brii Mckenzie. General Appearance: Alert and conversant, cooperative. Eyes: No scleral icterus. ENT, Mouth: Normal mucous membranes. No pharyngeal erythema or exudate, no trismus. Respiratory: Decreased breath sounds at the right base. Cardiovascular: Regular rate and rhythm. Gastrointestinal: Abdomen is soft and non tender. Neurological: Alert and oriented x3. Normally conversant. Face symmetric, normal movement and sensation in all extremities. Skin: Warm and dry, no rashes. Port site is covered with a dressing. Musculoskeletal: No peripheral edema and no joint swelling. Psychiatric: Not agitated. Emergency Department course/MDM: IV fluids, flu testing and chest x-ray, blood cultures and labs. Does not look toxic. 2011: discussed with the patient, Flu A positive. She feels better would like to go home after IV fluids. Not neutropenic. Does not have definite pneumonia. No UTI. Tamiflu discussed and consented. 2021: Pérez Mckenzie, discussed, agrees. Smoking Status: Never smoked Constitutional: Initial Vital Signs Temperature (C) 37.6 C 03/15/17 17:51 Heart Rate 93 03/15/17 17:51 Respiratory Rate 18 03/15/17 17:51 Blood Pressure 114/85 H 03/15/17 17:51 O2 Sat (%) 97 03/15/17 17:51 O2 Delivery Mode Room Air Allergies/Adverse Reactions: gabapentin Allergy (Severe, Verified 03/15/17 17:50) NIGHT TERRORS Home Medications: Medication Instructions Recorded Temazepam [Restoril] 30 mg PO HS PRN 04/05/15 LORazepam [Ativan (*)] 1 mg PO BID PRN 03/01/16 Fluticasone Nasal [Flonase Nasal 1 sprays EACHNARE DAILY PRN 10/23/16 [place]] Loratadine [Claritin 10 mg] 10 mg PO DAILY 10/23/16 Ondansetron Odt [Zofran Odt 4 mg 4 mg PO Q4H PRN 10/23/16 (*)] Promethazine HCl [Phenergan 25mg 25 mg PO DAILY PRN 10/23/16 (*)] oxyCODONE/APAP 5/325 [Percocet 2 tab PO Q4H PRN 10/23/16 5/325 (*)] Hyoscyamine Sulfate [Levsin, 0.125 mg PO Q6HRS PRN #120 tab 10/25/16 [place]-Sl 0.125 mg (*)] Acetaminophen [Tylenol 325mg (*)] 650 mg PO Q4 PRN #0 tab 11/14/16 Diazepam [Valium 5 MG (*)] 5 mg PO Q6HRS PRN #30 tab 11/14/16 oxyCODONE IR [Oxycodone Ir (*)] 5 - 10 mg PO Q4 PRN #60 tab 11/14/16 oxyCODONE/APAP 5/325 [Percocet 1 - 2 tab PO Q4HRS PRN #0 tab 11/14/16 5/325 (*)] Oseltamivir Phosphate [Tamiflu 75 75 mg PO BID #9 cap 03/15/17 mg (*)] Medical Decision Making - Diagnostics Imaging Results: Imaging Impressions Chest X-Ray 03/15/17 18:38 Impression: Chronic versus recurrent right pleural effusion versus scarring. Difficult to exclude right middle lobe pneumonia from scar. Differential Diagnosis: Differential considered including but not limited to influenza, pneumonia, UTI, sepsis, port infection - Data Points Laboratory Results: Laboratory Results 03/15/17 18:25 03/15/17 18:37 03/15/17 03/15/17 03/15/17 19:30 19:30 19:10 WBC RBC Hgb Hct MCV MCH MCHC RDW Plt Count MPV Neut % (Auto) Lymph % (Auto) [place] % (Auto) Eos % (Auto) Baso % (Auto) Nucleat RBC Rel Count Absolute Neuts (auto) Absolute Lymphs (auto) Absolute Monos (auto) Absolute Eos (auto) Absolute Basos (auto) Absolute Nucleated RBC Immature Gran % Immature Gran # PT 13.3 SEC SEC (12.0-15.0) INR 0.99 (0.83-1.16) APTT 26.3 SEC SEC (23.0-38.0) VBG Lactic Acid Sodium Potassium Chloride Carbon Dioxide Anion Gap BUN Creatinine Estimated GFR Glucose Calcium Total Bilirubin Beta HCG, Qual NEGATIVE Urine Color COLORLESS Urine Appearance CLEAR Urine pH 6.0 (5.0-7.5) Ur Specific [place] 1.002 (1.002-1.030) Urine Protein NEGATIVE (NEGATIVE) Urine Ketones NEGATIVE (NEGATIVE) Urine Blood NEGATIVE (NEGATIVE) Urine Nitrate NEGATIVE (NEGATIVE) Urine Bilirubin NEGATIVE (NEGATIVE) Urine Urobilinogen NEGATIVE EU EU (0.2-1.0) Ur Leukocyte Esterase NEGATIVE (NEGATIVE) Urine Glucose NEGATIVE (NEGATIVE) Nasal Influenza A PCR Nasal Influenza B PCR 03/15/17 03/15/17 03/15/17 19:10 18:37 18:25 WBC 5.33 10^3/uL 10^3/uL (3.80-9.50) RBC 4.08 10^6/uL L 10^6/uL (4.18-5.33) Hgb 13.1 g/dL g/dL (12.6-16.3) Hct 38.1 % % (38.0-47.0) MCV 93.4 fL fL (81.5-99.8) MCH 32.1 pg pg (27.9-34.1) MCHC 34.4 g/dL g/dL (32.4-36.7) RDW 13.8 % % (11.5-15.2) Plt Count 187 10^3/uL 10^3/uL (150-400) MPV 8.9 fL fL (8.7-11.7) Neut % (Auto) 63.9 % % (39.3-74.2) Lymph % (Auto) 18.2 % % (15.0-45.0) [place] % (Auto) 16.1 % H % (4.5-13.0) Eos % (Auto) 0.4 % L % (0.6-7.6) Baso % (Auto) 0.6 % % (0.3-1.7) Nucleat RBC Rel Count 0.0 % % (0.0-0.2) Absolute Neuts (auto) 3.41 10^3/uL 10^3/uL (1.70-6.50) Absolute Lymphs (auto) 0.97 10^3/uL L 10^3/uL (1.00-3.00) Absolute Monos (auto) 0.86 10^3/uL H 10^3/uL (0.30-0.80) Absolute Eos (auto) 0.02 10^3/uL L 10^3/uL (0.03-0.40) Absolute Basos (auto) 0.03 10^3/uL 10^3/uL (0.02-0.10) Absolute Nucleated RBC 0.00 10^3/uL 10^3/uL (0-0.01) Immature Gran % 0.8 % % (0.0-1.1) Immature Gran # 0.04 10^3/uL 10^3/uL (0.00-0.10) PT INR APTT VBG Lactic Acid Sodium 142 mEq/L mEq/L (134-144) Potassium 3.2 mEq/L L mEq/L (3.5-5.2) Chloride 115 mEq/L H mEq/L (97-110) Carbon Dioxide 17 mEq/l L mEq/l (22-31) Anion Gap 10 mEq/L mEq/L (8-16) BUN 4 mg/dL L mg/dL (7-23) Creatinine 0.5 mg/dL L mg/dL (0.6-1.0) Estimated GFR > 60 Glucose 80 mg/dL mg/dL (70-100) Calcium 7.2 mg/dL L D mg/dL (8.5-10.4) Total Bilirubin 0.3 mg/dL mg/dL (0.1-1.4) Beta HCG, Qual Urine Color Urine Appearance Urine pH Ur Specific [place] Urine Protein Urine Ketones Urine Blood Urine Nitrate Urine Bilirubin Urine Urobilinogen Ur Leukocyte Esterase Urine Glucose Nasal Influenza A PCR FLU A DETECTED H (NEGATIVE) Nasal Influenza B PCR NEGATIVE FOR FLU B (NEGATIVE) 03/15/17 18:25 WBC RBC Hgb Hct MCV MCH MCHC RDW Plt Count MPV Neut % (Auto) Lymph % (Auto) [place] % (Auto) Eos % (Auto) Baso % (Auto) Nucleat RBC Rel Count Absolute Neuts (auto) Absolute Lymphs (auto) Absolute Monos (auto) Absolute Eos (auto) Absolute Basos (auto) Absolute Nucleated RBC Immature Gran % Immature Gran # PT INR APTT VBG Lactic Acid 0.7 mmol/L mmol/L (0.7-2.1) Sodium Potassium Chloride Carbon Dioxide Anion Gap BUN Creatinine Estimated GFR Glucose Calcium Total Bilirubin Beta HCG, Qual Urine Color Urine Appearance Urine pH Ur Specific [place] Urine Protein Urine Ketones Urine Blood Urine Nitrate Urine Bilirubin Urine Urobilinogen Ur Leukocyte Esterase Urine Glucose Nasal Influenza A PCR Nasal Influenza B PCR Medications Given: Discontinued Medications Sodium Chloride (Ns) 1,000 mls @ 0 mls/hr IV EDNOW ONE; Wide Open PRN Reason: Protocol Stop: 03/15/17 18:39 Last Admin: 03/15/17 19:07 Dose: 1,000 mls Sodium Chloride (Ns) 1,000 mls @ 0 mls/hr IV EDNOW ONE; Wide Open PRN Reason: Protocol Stop: 03/15/17 19:56 Last Admin: 03/15/17 20:40 Dose: Not Given Oseltamivir Phosphate (Tamiflu) 75 mg PO EDNOW ONE Stop: 03/15/17 20:18 Last Admin: 03/15/17 20:40 Dose: 75 mg Oxycodone/Acetaminophen (Percocet 5/325) 2 tab PO EDNOW ONE Stop: 03/15/17 19:18 Last Admin: 03/15/17 19:25 Dose: 2 tab Departure - Departure Disposition: Home, Routine, Self-Care Clinical Impression: Influenza A Condition: Good Instructions: Influenza (ED) Referrals: Charisma Blanco MD [Primary Care Provider] - As per Instructions Brii Mckenzie MD [Medical Doctor] - As per Instructions Prescriptions: Oseltamivir Phosphate [Tamiflu 75 mg (*)] 75 mg PO BID #9 cap
[2017-03-15 18:51] LABS: % IMMATURE GRANULYOCYTES 0.8 % (0.0-1.1); ABSOLUTE IMMATURE GRANULOCYTES 0.04 10^3/uL (0.00-0.10); ADD DIFF? NO; ADD MORPH? NO; ADD SCAN? NO; ATYPICAL LYMPHOCYTE FLAG 0 (0-99); FRAGMENT RBC FLAG 0 (0-99); HEMATOCRIT 38.1 % (38.0-47.0); HEMOGLOBIN 13.1 g/dL (12.6-16.3); LEFT SHIFT FLG 0 (0-99); LIPEMIA HEMOLYSIS FLAG 90 (0-99); MEAN CELL HEMOGLOBIN 32.1 pg (27.9-34.1); MEAN CELL HEMOGLOBIN CONCENTR. 34.4 g/dL (32.4-36.7); MEAN CELL VOLUME 93.4 fL (81.5-99.8); MEAN PLATELET VOLUME 8.9 fL (8.7-11.7); PLATELET CLUMPS FLAG 20 (0-99); PLATELET COUNT 187 10^3/uL (150-400); RED BLOOD CELL COUNT 4.08 10^6/uL (4.18-5.33); RED CELL DISTRIBUTION WIDTH 13.8 % (11.5-15.2)
[2017-03-15] MEDS ORDERED: OXYCODONE/APAP 5/325 TAB PO ONE (19:17)
[2017-03-15 19:48] LABS: ANION GAP 10 mEq/L (8-16); BILIRUBIN,TOTAL 0.3 mg/dL (0.1-1.4); CARBON DIOXIDE 17 mEq/l (22-31); CHLORIDE 115 mEq/L (97-110); CREATININE 0.5 mg/dL (0.6-1.0); GLOMERULAR FILTRATION RATE > 60; GLUCOSE 80 mg/dL (70-100); POTASSIUM 3.2 mEq/L (3.5-5.2); SODIUM 142 mEq/L (134-144)
[2017-03-15 19:49] LABS: COLOR COLORLESS; LEUKOCYTE ESTERASE,URINE NEGATIVE (NEGATIVE); NITRITE,URINE NEGATIVE (NEGATIVE)
[2017-03-15 20:03] LABS: CALCIUM 7.2 mg/dL (8.5-10.4)
[2017-03-15 20:05] LABS: INR 0.99 (0.83-1.16); PROTIME(PATIENT) 13.3 SEC (12.0-15.0)
[2017-03-15 20:06] LABS: APTT 26.3 SEC (23.0-38.0)
[2017-03-15 20:09] LABS: PRINT OR CALL CRITICALS TECH CALL
[2017-03-15] MEDS ORDERED: OSELTAMIVIR PHOSPHATE 75 MG CAP PO ONE (20:17)
[2017-03-15 21:13] VITALS: BP 107/85; PULSE 86; RESP 16; TEMP 98.6; O2SAT 98
== END 2017-03-15 21:11 | disposition home or self-care (01) ==
PROC: 3E0337Z Introduction of Electrolytic and Water Balance Substance into Peripheral Vein, Percutaneous Approach (ICD-10-PCS; principal; 2017-03-15)
DX: J10.1 Influenza due to other identified influenza virus with other respiratory manifestations (principal); Z85.3 Personal history of malignant neoplasm of breast

== ENCOUNTER → 2017-04-24 | Day surgery (SDC) | payer OTHER ==
[~2017-04-24] MED LIST changes: +BACITRACIN ZINC 14.2 GM OINTTUBE TP ONE; +BUPIVACAINE 0.5% 30 ML SDV ONE; -GADOBUTROL 10 ML VIAL IVP ONE; +HYDROmorphONE/DILAUDID 1 MG/ML INJ IVP PRN; +LIDOCAINE 1% 300 MG/30 ML SDV ONE; +LR 1,000 ML IV ONE; +MIDAZOLAM 2 MG/2 ML VIAL IVP ONE; +NALOXONE HCL 0.4 MG/ML INJ IVP PRN; +ONDANSETRON 4 MG/2 ML VIAL IVP PRN; +PROMETHAZINE HCL 25 MG/ML INJ IVP PRN; +PROPOFOL 200 MG/20 ML VIAL ONE; +SODIUM BICARBONATE 10 MEQ/10 ML SYR IVP ONE; +ceFAZolin 2 GM/SWFI 2 GM/20 ML SYR IVP ONE; +fentaNYL 100 MCG/2 ML INJ IVP PRN; +fentaNYL 100 MCG/2 ML INJ ONE
--- NOTE | 2017-04-24 12:03 | PDANEPAE ---
ANE History of Present Illness medi port malposition ANE Past Medical History - Cardiovascular History Hx Hypertension: No Hx Arrhythmias: No Hx Chest Pain: No Hx Coronary Artery / Peripheral Vascular Disease: No Hx CHF / Valvular Disease: No Hx Palpitations: No - Pulmonary History Hx COPD: No Hx Asthma/Reactive Airway Disease: No Hx Recent Upper Respiratory Infection: No Hx Oxygen in Use at Home: No Hx Sleep Apnea: No Pulmonary History Comment: PLEURAL EFFUSION - RIGHT BREAST CA - Neurologic History Hx Cerebrovascular Accident: No Hx Seizures: No Hx Dementia: No - Endocrine History Hx Diabetes: No - Renal History Hx Renal Disorders: No - Liver History Hx Hepatic Disorders: No - Neurological & Psychiatric Hx Hx Neurological and Psychiatric Disorders: No - Cancer History Hx Cancer: Yes Cancer History Comment: RIGHT Breast CA - Congenital Disorder History Hx Congenital Disorders: No - GI History Hx Gastrointestinal Disorders: Yes Gastrointestinal History Comment: GASTRITIS - Other Health History Other Health History: NEG - Chronic Pain History Chronic Pain: Yes (HIP PAIN) - Surgical History Prior Surgeries: Bilateral total mastectomy, Bilateral hip REPAIR, multiple spinal instrumentations, ANE Review of Systems Review of Systems: - Exercise capacity METS (RN): 6 METS ANE Patient History - Allergies Allergies/Adverse Reactions: gabapentin Allergy (Severe, Verified 03/15/17 17:50) NIGHT TERRORS - Home Medications Home Medications: Temazepam [Restoril] 30 mg PO HS PRN 04/05/15 [Last Taken 04/23/17] LORazepam [Ativan (*)] 1 mg PO BID PRN 03/01/16 [Last Taken 04/23/17] Fluticasone Nasal [Flonase Nasal [place]] 1 sprays EACHNARE DAILY PRN 10/23/16 [ Last Taken 3 Months Ago ~01/22/17] Loratadine [Claritin 10 mg] 10 mg PO DAILY 10/23/16 [Last Taken 3 Months Ago ~] Ondansetron Odt [Zofran Odt 4 mg (*)] 4 mg PO Q4H PRN 10/23/16 [Last Taken 1 Month Ago ~03/24/17] Promethazine HCl [Phenergan 25mg (*)] 25 mg PO DAILY PRN 10/23/16 [Last Taken 2 Weeks Ago ~04/10/17] oxyCODONE/APAP 5/325 [Percocet 5/325 (*)] 2 tab PO Q4H PRN 10/23/16 [Last Taken 04/24/17 04:00] - NPO status NPO Since - Liquids (Date): 04/24/17 NPO Since - Liquids (Time): 04:00 NPO Since - Solids (Date): 04/24/17 NPO Since - Solids (Time): 04:00 - Smoking Hx Smoking Status: Never smoked - Family Anes Hx Family Hx Anesthesia Complications: neg ANE Labs/Vital Signs - Vital Signs Blood Pressure: 105/76 Heart Rate: 87 Respiratory Rate: 12 O2 Sat (%): 95 Height: 170.18 cm Weight: 62.704 kg ANE Physical Exam - Airway Neck exam: FROM Mallampati Score: Class 1 Mouth exam: normal dental/mouth exam - Pulmonary Pulmonary: no respiratory distress - Cardiovascular Cardiovascular: regular rate and rhythym - ASA Status ASA Status: II ANE Anesthesia Plan Anesthesia Plan: MAC
--- NOTE | 2017-04-24 13:33 | POSTOPPROG ---
Post Op Note Date of Operation: 04/24/17 Surgeon: Shivam Rucker Anesthesiologist: Dana Anesthesia: GET(General Endotracheal) Pre-op Diagnosis: metastatic breast CA. port migration. Post-op Diagnosis: same Procedure: power port revision/reposition Findings: good position and flow Inf/Abcess present in the surg proc area at time of surgery?: No EBL: Minimal Complications: none
[2017-04-24 14:30] VITALS: BP 98/66; PULSE 70; RESP 17; O2SAT 98
[2017-04-24 14:36] VITALS: TEMP 98.1
--- NOTE | 2017-04-25 09:05 | GOP ---
[f rep st] OPERATIVE REPORT DATE OF OPERATION: 04/24/2017 SURGEON: Shivam Rucker MD PREOPERATIVE DIAGNOSIS: Malfunctioning port. POSTOPERATIVE DIAGNOSIS: Malfunctioning port. PROCEDURE PERFORMED: Port revision. FINDINGS: The patient was found to have good flow and good function of the port after pulling the ca theter back 3 cm. DESCRIPTION OF PROCEDURE: Patient taken to the operating room, where she received IV sedation and mo nitored anesthesia care by Dr. Cortez. She was placed in the supine position, prepped and draped in the usual sterile fashion. Using 1% Xylocaine local infiltration, the area over the catheter inserti on site was anesthetized. A transverse incision was made and carried down through the subcutaneous t issue. The catheter was freed up from subcutaneous tissue, and the catheter was pulled back under fl uoroscopic guidance approximately 3 cm until it was in the upper portion of the right atrium. The ca theter was secured in position with 3-0 Vicryl suture. A subcutaneous pocket had been made in that a yanni, and catheter was positioned in a gentle loop. The port was flushed with heparinized saline and appeared to function quite well. She tolerated the procedure well. The wound was infiltrated with 0 .5% Marcaine and closed with 3-0 Vicryl for the subcutaneous tissue, and a 4-0 Monocryl subcuticular stitch for the skin. There were no complications. She was taken to the recovery room in good condit ion. /[id number]/MODL
== END | disposition home or self-care (01) ==
LOC: FSGY 10:29
PROVIDERS: ATTEND Surgery
PROC: 03WY03Z Revision of Infusion Device in Upper Artery, Open Approach (ICD-10-PCS; principal; 2017-04-24 12:30)
DX: Z45.2 Encounter for adjustment and management of vascular access device (principal); T82.9XXA Unspecified complication of cardiac and vascular prosthetic device, implant and graft, initial encounter; C78.7 Secondary malignant neoplasm of liver and intrahepatic bile duct; Z85.3 Personal history of malignant neoplasm of breast
CPT/HCPCS: J0690; J1642; J2250; J2704; J3010

== ENCOUNTER → 2017-08-07 | Outpatient (CLI) | payer OTHER ==
[~2017-08-07] MED LIST changes: -BACITRACIN ZINC 14.2 GM OINTTUBE TP ONE; -BUPIVACAINE 0.5% 30 ML SDV ONE; +GADOBUTROL 10 ML VIAL IVP ONE; -HYDROmorphONE/DILAUDID 1 MG/ML INJ IVP PRN; -LIDOCAINE 1% 300 MG/30 ML SDV ONE; -LR 1,000 ML IV ONE; -MIDAZOLAM 2 MG/2 ML VIAL IVP ONE; -NALOXONE HCL 0.4 MG/ML INJ IVP PRN; -ONDANSETRON 4 MG/2 ML VIAL IVP PRN; -PROMETHAZINE HCL 25 MG/ML INJ IVP PRN; -PROPOFOL 200 MG/20 ML VIAL ONE; -SODIUM BICARBONATE 10 MEQ/10 ML SYR IVP ONE; -ceFAZolin 2 GM/SWFI 2 GM/20 ML SYR IVP ONE; -fentaNYL 100 MCG/2 ML INJ IVP PRN; -fentaNYL 100 MCG/2 ML INJ ONE
== END ==
LOC: FIMAGING 13:13
PROVIDERS: ATTEND Internal Medicine Hematology & Oncology
DX: C79.51 Secondary malignant neoplasm of bone (principal); C78.6 Secondary malignant neoplasm of retroperitoneum and peritoneum; Z85.3 Personal history of malignant neoplasm of breast; Z85.05 Personal history of malignant neoplasm of liver; Z98.890 Other specified postprocedural states
CPT/HCPCS: 72197; 74183; A9585; 86300-90

== ENCOUNTER 2017-10-02 06:30 | Day surgery (SDC) | payer OTHER ==
[2017-10-02] MEDS ORDERED: LR 1,000 ML IV ONE (06:53)
[2017-10-02] MEDS ORDERED: ceFAZolin 2 GM/DEXTROSE 100 ML IV ONE ×2 (06:53→14:49)
[2017-10-02] MEDS ORDERED: HEPARIN 1000 UNIT/1 ML MDV ONE (06:58)
[2017-10-02] MEDS ORDERED: ceFAZolin 1 GM/5 ML SYR ONE (06:58)
[2017-10-02] MEDS ORDERED: BUPIVACAINE 0.25% 30 ML SDV ONE ×2 (06:58→16:57)
[2017-10-02] MEDS ORDERED: MIDAZOLAM 2 MG/2 ML VIAL IVP ONE (07:09)
--- NOTE | 2017-10-02 07:11 | PDANEPAE ---
ANE History of Present Illness exploratory laparoscopy ANE Past Medical History - Cardiovascular History Hx Hypertension: No Hx Arrhythmias: No Hx Chest Pain: No Hx Coronary Artery / Peripheral Vascular Disease: No Hx CHF / Valvular Disease: No Hx Palpitations: No - Pulmonary History Hx COPD: No Hx Asthma/Reactive Airway Disease: No Hx Recent Upper Respiratory Infection: No Hx Oxygen in Use at Home: No Hx Sleep Apnea: No Sleep Apnea Screening Result - Last Documented: Negative Pulmonary History Comment: PLEURAL EFFUSION - RIGHT BREAST CA - Neurologic History Hx Cerebrovascular Accident: No Hx Seizures: No Hx Dementia: No - Endocrine History Hx Diabetes: No Hypothyroid: No Hyperthyroid: No Obesity: no - Renal History Hx Renal Disorders: No - Liver History Hx Hepatic Disorders: Yes Hepatic History Comment: PARTIAL HEPATECTOMY - Neurological & Psychiatric Hx Hx Neurological and Psychiatric Disorders: No - Cancer History Hx Cancer: Yes Cancer History Comment: RIGHT Breast CA. LIVER. SPINE, PELVIS - Congenital Disorder History Hx Congenital Disorders: No - GI History GERD: moderate Hx Gastrointestinal Disorders: Yes Gastrointestinal History Comment: GASTRITIS - Other Health History Other Health History: NEG - Chronic Pain History Chronic Pain: Yes (HIP PAIN) - Surgical History Prior Surgeries: Bilateral total mastectomy,. Bilateral hip REPAIR. SPINAL FUSION LUMBAR ANE Review of Systems Review of systems is: negative Review of Systems: - Exercise capacity METS (RN): 5 METS ANE Patient History - Allergies Allergies/Adverse Reactions: gabapentin Allergy (Severe, Verified 03/15/17 17:50) NIGHT TERRORS - Home Medications Home medications: home medication list seen and reviewed Home Medications: Temazepam [Restoril] 30 mg PO HS PRN 04/05/15 [Last Taken 10/01/17] LORazepam [Ativan (*)] 1 mg PO BID PRN 03/01/16 [Last Taken 10/01/17] Fluticasone Nasal [Flonase Nasal [place]] 1 sprays EACHNARE DAILY PRN 10/23/16 [ Last Taken 09/27/17] Loratadine [Claritin 10 mg] 10 mg PO DAILY 10/23/16 [Last Taken 09/30/17] Promethazine HCl [Phenergan 25mg (*)] 25 mg PO DAILY PRN 10/23/16 [Last Taken ] Faslodex 10/01/17 [Last Taken 10/01/17] Ibrance 10/01/17 [Last Taken 09/25/17] Protonix 10/01/17 [Last Taken 10/01/17] - Anes Hx Anes Hx: post operative nausea - Smoking Hx Smoking Status: Never smoked - Family Anes Hx Family Hx Anesthesia Complications: neg ANE Labs/Vital Signs - Vital Signs Height: 170.18 cm Weight: 65.771 kg ANE Physical Exam - Airway Neck exam: FROM Mallampati Score: Class 1 Mouth exam: normal dental/mouth exam - Pulmonary Pulmonary: no respiratory distress - Cardiovascular Cardiovascular: regular rate and rhythym - ASA Status ASA Status: III ANE Anesthesia Plan Anesthesia Plan: general endotracheal anesthesia
[2017-10-02] MEDS ORDERED: PROPOFOL 200 MG/20 ML VIAL ONE (07:15)
[2017-10-02] MEDS ORDERED: SCOPOLAMINE HYDROBROMIDE 1 MG/3 DAYS PATCH TD SCH (07:15)
[2017-10-02] MEDS ORDERED: fentaNYL 100 MCG/2 ML INJ ONE ×5 (07:15→18:37)
[2017-10-02] MEDS ORDERED: ROCURONIUM 50 MG/5 ML VIAL ONE (07:16)
[2017-10-02] MEDS ORDERED: SUGAMMADEX SODIUM 200 MG/2 ML VIAL IVP ONE (07:16)
[2017-10-02] MEDS ORDERED: ONDANSETRON 4 MG/2 ML VIAL ONE (07:16)
[2017-10-02] MEDS ORDERED: DEXAMETHASONE 4 MG/ML VIAL ONE (07:16)
[2017-10-02] MEDS ORDERED: KETOROLAC 30 MG/1 ML SDV ONE (07:16)
[2017-10-02] MEDS ORDERED: LIDOCAINE 2% 5 ML SDV ONE ×2 (07:19→16:45)
[2017-10-02] MEDS ORDERED: PHENYLEPHRINE HCL 100 MCG/ML SYR ONE (07:42)
[2017-10-02] MEDS ORDERED: ePHEDrine SULFATE 25 MG/5 ML SYR ONE (07:45)
--- NOTE | 2017-10-02 07:56 | POSTANESTH ---
Post Anesthetic Evaluation Cardiovascular Status: Normal, Stable Respiratory Status: Normal, Stable Level of Consciousness/Mental Status: Can Participate in Eval, Alert and Oriented Pain Control: Adequate, Prn Tx Ordered Nausea/Vomiting Control: Adequate, Prn Tx Ordered Complications Possibly Related to Anesthesia: None Noted
[2017-10-02] MEDS ORDERED: LR 500 ML IV PRN ×2 (08:28→17:48)
[2017-10-02] MEDS ORDERED: PROMETHAZINE HCL 25 MG/ML INJ IVP PRN (08:28)
[2017-10-02] MEDS ORDERED: ALBUTEROL 3 ML DEYVIAL IH PRN ×2 (08:28→17:48)
[2017-10-02] MEDS ORDERED: ACETAMINOPHEN 500 MG TAB PO PRN ×2 (08:28→17:48)
[2017-10-02] MEDS ORDERED: oxyCODONE IR 5 MG TAB PO PRN ×2 (08:28→17:48)
[2017-10-02] MEDS ORDERED: NALOXONE HCL 0.4 MG/ML INJ IVP PRN ×2 (08:28→17:48)
[2017-10-02] MEDS ORDERED: HYDROCODONE/APAP 5/325 TAB PO PRN ×2 (08:28→17:48)
[2017-10-02] MEDS ORDERED: ONDANSETRON 4 MG/2 ML VIAL IVP PRN ×2 (08:28→17:48)
[2017-10-02] MEDS ORDERED: HYDROmorphONE/DILAUDID 1 MG/ML INJ ONE ×3 (08:31→13:13)
[2017-10-02] MEDS: HYDROmorphONE/DILAUDID 1 MG/ML INJ IVP PRN ×6 (08:32→13:15)
[2017-10-02] MEDS: fentaNYL 100 MCG/2 ML INJ IVP PRN ×2 (08:32→08:39)
--- NOTE | 2017-10-02 09:18 | GOP ---
[f rep st] OPERATIVE REPORT DATE OF OPERATION: 10/02/2017 SURGEON: Shivam Rucker MD CURATOR [employer]: Radha Lo, LANG. ANESTHESIA: Bora De Souza MD. PREOPERATIVE DIAGNOSIS: Right upper quadrant pain, possible incisional hernia. POSTOPERATIVE DIAGNOSIS: Probable carcinomatosis and adhesions to the liver. PROCEDURE PERFORMED: Diagnostic laparoscopy, wedge liver biopsy, and peritoneal biopsy. FINDINGS: Patient was found to have whitish plaques all over the peritoneal surfaces. She had a lar ge number of adhesions to the liver in the right upper quadrant. She had a small, less than 1 cm nod ule, on the anterior surface of the liver which appeared to be black, and she had no evidence of a he rnia defect in the right upper quadrant or adjacent to her previous trocar sites. ESTIMATED BLOOD LOSS: Negligible. DESCRIPTION OF PROCEDURE: The patient was taken to the operating room where she received satisfactor y general endotracheal anesthesia by Dr. De Souza. She was placed in the supine position and prepped and draped in the usual sterile fashion. A periumbilical incision was made. A Veress needle insert ed. Pneumoperitoneum was established. Trocar was introduced. Laparoscope introduced. Good visuali zation was obtained. A second trocar was placed in the left upper quadrant. Adhesions were taken do wn. The nodule in the right lobe of the liver was removed with sharp dissection. Hemostasis was obt ained with electrocautery and the specimen was removed. A 2 cm square piece of peritoneum was taken off as a biopsy as well. Hemostasis was obtained. There was no evidence of any herniation in the ri [facility] upper quadrant. The trocars were removed under direct vision. Trocar sites were closed with 4-0 Monocryl subcuticular stitch for the skin. All layers infiltrated with 0.5% Marcaine. COMPLICATIONS: None. /[id number]/MODL
--- NOTE | 2017-10-02 11:27 | POSTOPPROG ---
Post Op Note Date of Operation: 10/02/17 Surgeon: Shivam Rucker Cashier Checker: Radha Lo Anesthesiologist: Joe Vines Anesthesia: GET(General Endotracheal) Pre-op Diagnosis: RUQ pain, possible hernia, known metastatic breast CA Post-op Diagnosis: adhesions, likely peritoneal metastatic disease Indication: c/o positional pinpoint RUQ pain above prior trocar site Procedure: exlaparoscopy, adhesiolysis, liver and peritoneal biopsies Findings: peritoneal plaques, hepatic adhesions, small dark liver mass Inf/Abcess present in the surg proc area at time of surgery?: No EBL: Minimal Complications: none Specimen(s): peritoneal and liver biopsies
[2017-10-02] MEDS ORDERED: IOPAMIDOL (ISOVUE 370) 100 ML BTL IV ONE (11:48)
--- NOTE | 2017-10-02 14:55 | PDHPUP ---
History & Physical Update H&P update statement: This history and physical update is based on an assessment of the patient which was completed after admission or registration (within 24 hours), but prior to the surgery/procedure. H&P update: changes noted H&P changes: Power port malfunction--can flush port but cannot pull. Xray and flouro study done. IR not recommending stripping of port. Plan for revision today with likely removal and replacement of port with flouroscopic guidance.
--- NOTE | 2017-10-02 16:40 | POSTOPPROG ---
Post Op Note Date of Operation: 10/02/17 Surgeon: Shivam Rucker Anesthesiologist: Bora De Souza Anesthesia: IV Sedation, LMA Pre-op Diagnosis: power port malfunction, breast CA Post-op Diagnosis: same Procedure: power port revision with removal and replacement under flouro guidance Findings: good position and flow Inf/Abcess present in the surg proc area at time of surgery?: No EBL: Minimal Complications: none
[2017-10-02] MEDS ORDERED: PROPOFOL/EMULSION 500 MG/50 ML BOTTLE IV ONE ×2 (16:45→17:35)
--- NOTE | 2017-10-02 16:52 | PDANEPAE ---
ANE History of Present Illness vascular access port malfunction ANE Past Medical History - Cardiovascular History Hx Hypertension: No Hx Arrhythmias: No Hx Chest Pain: No Hx Coronary Artery / Peripheral Vascular Disease: No Hx CHF / Valvular Disease: No Hx Palpitations: No - Pulmonary History Hx COPD: No Hx Asthma/Reactive Airway Disease: No Hx Recent Upper Respiratory Infection: No Hx Oxygen in Use at Home: No Hx Sleep Apnea: No Sleep Apnea Screening Result - Last Documented: Negative Pulmonary History Comment: PLEURAL EFFUSION - RIGHT BREAST CA - Neurologic History Hx Cerebrovascular Accident: No Hx Seizures: No Hx Dementia: No - Endocrine History Hx Diabetes: No Hypothyroid: No Hyperthyroid: No Obesity: no - Renal History Hx Renal Disorders: No - Liver History Hx Hepatic Disorders: Yes Hepatic History Comment: PARTIAL HEPATECTOMY - Neurological & Psychiatric Hx Hx Neurological and Psychiatric Disorders: No - Cancer History Hx Cancer: Yes Cancer History Comment: RIGHT Breast CA. LIVER. SPINE, PELVIS - Congenital Disorder History Hx Congenital Disorders: No - GI History GERD: moderate Hx Gastrointestinal Disorders: Yes Gastrointestinal History Comment: GASTRITIS - Other Health History Other Health History: NEG - Chronic Pain History Chronic Pain: Yes (HIP PAIN) - Surgical History Prior Surgeries: Bilateral total mastectomy,. Bilateral hip REPAIR. SPINAL FUSION LUMBAR ANE Review of Systems Review of Systems: - Exercise capacity METS (RN): 5 METS ANE Patient History - Allergies Allergies/Adverse Reactions: gabapentin Allergy (Severe, Verified 03/15/17 17:50) NIGHT TERRORS - Home Medications Home medications: home medication list seen and reviewed Home Medications: Temazepam [Restoril] 30 mg PO HS PRN 04/05/15 [Last Taken 10/01/17] LORazepam [Ativan (*)] 1 mg PO BID PRN 03/01/16 [Last Taken 10/01/17] Fluticasone Nasal [Flonase Nasal [place]] 1 sprays EACHNARE DAILY PRN 10/23/16 [ Last Taken 09/27/17] Loratadine [Claritin 10 mg] 10 mg PO DAILY 10/23/16 [Last Taken 09/30/17] Promethazine HCl [Phenergan 25mg (*)] 25 mg PO DAILY PRN 10/23/16 [Last Taken ] Faslodex 10/01/17 [Last Taken 10/01/17] Ibrance 10/01/17 [Last Taken 09/25/17] Protonix 10/01/17 [Last Taken 10/01/17] - NPO status NPO Since - Liquids (Date): 10/01/17 NPO Since - Liquids (Time): 22:30 NPO Since - Solids (Date): 10/01/17 NPO Since - Solids (Time): 22:30 - Smoking Hx Smoking Status: Never smoked - Family Anes Hx Family Hx Anesthesia Complications: neg ANE Labs/Vital Signs - Vital Signs Blood Pressure: 90/66 Heart Rate: 73 Respiratory Rate: 16 O2 Sat (%): 92 Height: 170.18 cm Weight: 65.771 kg ANE Physical Exam - Airway Neck exam: FROM Mallampati Score: Class 1 Mouth exam: normal dental/mouth exam - Pulmonary Pulmonary: no respiratory distress - Cardiovascular Cardiovascular: regular rate and rhythym - ASA Status ASA Status: III ANE Anesthesia Plan Anesthesia Plan: GA with mask
[2017-10-02] MEDS ORDERED: BUPIVACAINE/EPI 0.5% 30 ML SDV ONE (16:56)
[2017-10-02] MEDS ORDERED: LIDOCAINE 1% 300 MG/30 ML SDV ONE (17:14)
[2017-10-02] MEDS ORDERED: NA BICARBONATE 50 MEQ/50 ML VIAL ONE (17:15)
[2017-10-02] MEDS ORDERED: HYDROmorphONE/DILAUDID 1 MG/ML INJ IVP PRN (17:48)
[2017-10-02] MEDS ORDERED: fentaNYL 100 MCG/2 ML INJ IVP PRN (17:48)
[2017-10-02] MEDS ORDERED: oxyCODONE IR 5 MG TAB ONE (19:03)
[2017-10-02 19:26] VITALS: BP 98/60
--- NOTE | 2017-10-02 19:48 | GOP ---
[f rep st] OPERATIVE REPORT DATE OF OPERATION: 10/02/2017 SURGEON: Shivam Rucker MD ANESTHESIOLOGIST: Dr. De Souza. PREOPERATIVE DIAGNOSIS: Metastatic breast cancer. POSTOPERATIVE DIAGNOSIS: Metastatic breast cancer. PROCEDURE PERFORMED: 1. Left subclavian port placement with fluoroscopic guidance. 2. Removal of old port. FINDINGS: The patient was noted to have good position and flow of the new port. DESCRIPTION OF PROCEDURE: The patient was taken to the operating room, where she received satisfacto ry IV sedation and monitored anesthesia care by Dr. De Souza. She was placed in supine position, pre pped and draped in the usual sterile fashion, and then placed in Trendelenburg. A single stick was m gallito in the left subclavian vein. A guidewire was introduced, and position was confirmed with fluoros copy. This was all done with 1% Xylocaine local infiltration. Next, the old port pocket was opened, again with 1% Xylocaine local infiltration. Dissection extended down to the port, which was freed u p from its pocket, and then the entire port and the tubing were removed. A new port was prepared for this pocket and tunneled subcutaneously to the new insertion site. The port was secured to the fasc ia with 3-0 Vicryl sutures. The port tubing was trimmed to the appropriate length using fluoroscopic guidance, and then introduced via the introducer sheath and dilator system into the right atrium. G ood backflow was present. The catheter was flushed with heparin saline. The port was secured to the fascia with 3-0 Vicryl, and the pocket was closed with 3-0 Vicryl for the subcu and 4-0 Monocryl sub cuticular stitch for the skin. The entrance site was closed with Monocryl subcuticular suture. Woun ds were dressed with Dermabond. She tolerated the procedure well and was taken to the recovery room in good condition, with no complications. /[id number]/[id number]
[2017-10-03] MEDS ORDERED: PATCH REMOVAL 1 EA PATCH TD ONE (07:09)
== END 2017-10-02 19:15 | disposition home or self-care (01) ==
LOC: FSGY 06:30
PROVIDERS: ATTEND Surgery
PROC: 0JPT03Z Removal of Infusion Device from Trunk Subcutaneous Tissue and Fascia, Open Approach (ICD-10-PCS; 2017-10-02)
PROC: 02H633Z Insertion of Infusion Device into Right Atrium, Percutaneous Approach (ICD-10-PCS; 2017-10-02)
PROC: 0JPT0XZ Removal of Tunneled Vascular Access Device from Trunk Subcutaneous Tissue and Fascia, Open Approach (ICD-10-PCS; 2017-10-02)
PROC: 0JH60XZ Insertion of Tunneled Vascular Access Device into Chest Subcutaneous Tissue and Fascia, Open Approach (ICD-10-PCS; 2017-10-02)
PROC: 0FB04ZX Excision of Liver, Percutaneous Endoscopic Approach, Diagnostic (ICD-10-PCS; principal; 2017-10-02 08:00)
PROC: 0DBW4ZX Excision of Peritoneum, Percutaneous Endoscopic Approach, Diagnostic (ICD-10-PCS; principal; 2017-10-02 08:00)
PROC: 0FN04ZZ Release Liver, Percutaneous Endoscopic Approach (ICD-10-PCS; principal; 2017-10-02 08:00)
DX: K66.0 Peritoneal adhesions (postprocedural) (postinfection) (principal); C78.6 Secondary malignant neoplasm of retroperitoneum and peritoneum; Z85.3 Personal history of malignant neoplasm of breast; Z17.0 Estrogen receptor positive status [ER+]; T82.514A Breakdown (mechanical) of infusion catheter, initial encounter
CPT/HCPCS: C1788; J0690; J1100; J1170; J1642; J1885; J2250; J2370; J2405; J2704; J3010; Q9967

== ENCOUNTER → 2018-05-28 | Outpatient (CLI) | payer OTHER | LOC: FIMAGING 15:44 | PROVIDERS: ATTEND Internal Medicine Hematology & Oncology | DX: M25.552 Pain in left hip (principal); C50.411 Malignant neoplasm of upper-outer quadrant of right female breast; C50.811 Malignant neoplasm of overlapping sites of right female breast; M76.01 Gluteal tendinitis, right hip | CPT/HCPCS: 73723; A9585; J1642 ==